=== PATIENT | female | born 1975 | race Caucasian/White ===

== ENCOUNTER 2021-08-27 09:06 | Outpatient (REF) | payer BC, SELFPAY ==
[2021-08-27 11:24] LABS: MANUAL DIFF FLAG NO
[2021-08-27 11:32] LABS: Basophils Absolute Auto 0.1 X10*3/uL (0.0-0.2); Basophils Percent Auto 0.6 % (0-2); Eosinophils Absolute Auto 0.3 X10*3/uL (0.0-0.4); Hematocrit 42.5 % (37.0-47.0); Imm Gran Abs Auto 0.04 X10*3/uL (0.00-0.03); Imm Gran Pct Auto 0.5 % (0.0-0.4); Lymphocytes Absolute Auto 1.8 X10*3/uL (1.2-4.9); Lymphocytes Percent Auto 20.4 % (20-40); Mean Corpuscular HGB Conc 32.9 g/dl (31.0-35.0); Mean Corpuscular Hemoglobin 28.6 pg (27.0-33.0); Mean Corpuscular Volume 86.9 fL (80.0-98.0); Mean Platelet Volume 12.1 fL (9.4-12.3); Monocytes Absolute Auto 0.5 X10*3/uL (0.1-1.2); Monocytes Percent Auto 5.3 % (2-11); Neutrophils Absolute Auto 6.1 x10*3/uL (2.0-8.3); Neutrophils Percent Auto 70.2 % (45-73); Platelet Count 225 X10*3/uL (160-400); Red Blood Count 4.89 X10*6/uL (4.20-5.50); Red Cell Distribution Width 12.9 % (11.0-16.0); White Blood Count 8.6 X10*3/uL (4.8-10.8)
[2021-08-27 11:47] LABS: Alanine Aminotransferase 11 U/L (0-31); Albumin Level 4.1 g/dL (3.5-5.0); Alkaline Phosphatase 55 U/L (39-117); Anion Gap 13 (12-20); Aspartate Amino Transferase 16 U/L (5-31); Bilirubin Total 0.8 mg/dL (0.0-1.0); Blood Urea Nitrogen 14 mg/dL (9-16); Calcium 8.9 mg/dL (8.4-10.2); Carbon Dioxide 21 mmol/L (22-29); Chloride 110 mmol/L (96-108); Cholesterol 184 mg/dL; Estimated Glomerular Filt Rate > 60; Glucose Fasting 100 mg/dL (60-99); HDL Cholesterol 49 mg/dL; LDL Cholesterol Calculated 123 mg/dl; Potassium 4.5 mmol/L (3.3-5.1); Sodium 139 mmol/L (135-145); Total Protein 6.6 g/dL (6.5-8.0); Triglycerides 64 mg/dL
[2021-08-27 12:13] LABS: TSH reflex Free T4 1.53 uIU/mL (0.32-4.0); Vitamin D 25-OH Total 47.5 ng/mL (>30)
== END 2021-08-27 09:07 | disposition home or self-care (01) ==
LOC: HO.HMGCLDS 09:06
PROVIDERS: PCP Internal Medicine; Visit Provider Internal Medicine
DX: Z00.00 Encounter for general adult medical examination without abnormal findings (principal); Z86.32 Personal history of gestational diabetes; Z87.59 Personal history of other complications of pregnancy, childbirth and the puerperium; Z83.49 Family history of other endocrine, nutritional and metabolic diseases
CPT/HCPCS: 36415; 80053; 80061; 82306; 84443; 85025

== ENCOUNTER 2021-11-01 09:06 | Outpatient (REF) | payer BC, SELFPAY ==
[2021-11-01 09:30] LABS: Binax Internal Control QC Valid; Binax Now Covid-19 Ag Positive (Negative)
== END 2021-11-01 09:07 | disposition home or self-care (01) ==
LOC: HO.HMGCLDS 09:06
PROVIDERS: Visit Provider Internal Medicine
DX: Z13.89 Encounter for screening for other disorder (principal)

== ENCOUNTER 2022-08-25 08:42 | Outpatient (REF) | payer BC, SELFPAY ==
[2022-08-25 11:32] LABS: MANUAL DIFF FLAG NO
[2022-08-25 11:44] LABS: Basophils Absolute Auto 0.1 X10*3/uL (0.0-0.2); Basophils Percent Auto 1.2 % (0-2); Eosinophils Absolute Auto 0.3 X10*3/uL (0.0-0.4); Eosinophils Percent Auto 4.3 % (0-4); Hematocrit 42.5 % (37.0-47.0); Hemoglobin 14.3 g/dl (12.0-16.0); Imm Gran Abs Auto 0.03 X10*3/uL (0.00-0.03); Imm Gran Pct Auto 0.5 % (0.0-0.4); Lymphocytes Absolute Auto 1.8 X10*3/uL (1.2-4.9); Lymphocytes Percent Auto 30.5 % (20-40); Mean Corpuscular HGB Conc 33.6 g/dl (31.0-35.0); Mean Corpuscular Hemoglobin 29.2 pg (27.0-33.0); Mean Corpuscular Volume 86.7 fL (80.0-98.0); Mean Platelet Volume 12.2 fL (9.4-12.3); Monocytes Absolute Auto 0.4 X10*3/uL (0.1-1.2); Neutrophils Absolute Auto 3.5 x10*3/uL (2.0-8.3); Neutrophils Percent Auto 57.5 % (45-73); Platelet Count 205 X10*3/uL (160-400)
[2022-08-25 12:21] LABS: TSH reflex Free T4 1.71 uIU/mL (0.32-4.0)
[2022-08-25 12:44] LABS: Alanine Aminotransferase 11 U/L (0-31); Anion Gap 16 (12-20); Aspartate Amino Transferase 18 U/L (5-31); Blood Urea Nitrogen 20 mg/dL (9-16); Calcium 9.2 mg/dL (8.4-10.2); Carbon Dioxide 21 mmol/L (22-29); Chloride 108 mmol/L (96-108); Cholesterol 188 mg/dL; Estimated Glomerular Filt Rate > 60; Glucose Fasting 111 mg/dL (60-99); HDL Cholesterol 61 mg/dL; LDL Cholesterol Calculated 118 mg/dl; Potassium 4.6 mmol/L (3.3-5.1); Sodium 140 mmol/L (135-145); Triglycerides 49 mg/dL
[2022-08-25 13:33] LABS: Vitamin D 25-OH Total 49.5 ng/mL (>30)
== END 2022-08-25 08:43 | disposition home or self-care (01) ==
LOC: HO.HMGCLDS 08:42
PROVIDERS: PCP Internal Medicine; Visit Provider Internal Medicine
DX: L60.8 Other nail disorders (principal); E66.9 Obesity, unspecified; Z83.49 Family history of other endocrine, nutritional and metabolic diseases; Z86.32 Personal history of gestational diabetes
CPT/HCPCS: 36415; 80048; 80061; 82306; 84443; 84450; 84460; 85025

== ENCOUNTER 2023-04-30 08:04 | Outpatient (AMB) | payer BC, SELFPAY ==
--- NOTE | 2023-04-30 08:16 | A.OFFVIS_ITS ---
Intake Vital Signs 04/30/23 08:17 Height 5 ft 3 in Weight 185 lb BMI 32.8 BP 132/61 Blood Pressure Location Lt brachial Position Sitting Pulse 57 Intake Visit Reasons: colonoscopy screening Intake Note: Patient 1st pre colonoscopy consult. Patient denies any GI issues. 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 She has no GI or general complaints. No family history of GI cancer Appetite is good, she has normal bowel pattern. No cardiac or respiratory issues No nausea, vomiting, hematemesis, hematochezia fever chills. [facility] Medical History (Updated 04/30/23 @ 10:10 by Fatoumata Contreras PA-C) Acquired deformity of toenail COVID-19 vaccination declined Family history of thyroid disease History of menorrhagia History of pre-eclampsia Hx gestational diabetes Obesity without serious comorbidity Status post hysteroscopy Surgical History Status post dilatation and curettage Status post endometrial ablation Family History Other Thyroid disorder Social History Housing: House Patient Tobacco Use Status: Never used Tobacco e-Cigarette/Vaping Use: Never Used service: No Current occupational status: employed Cognitive needs: No Hearing needs: No Vision needs: Yes (contacts) Review of Systems Const All systems reviewed & are unremarkable except as noted in HPI and below Card Denies chest pain and Denies dyspnea Resp Denies dyspnea GI Denies no additional complaints and Denies abdominal pain Physical Exam Vital Signs: Last Vital Signs Pulse 57 04/30/23 08:17 BP 132/61 04/30/23 08:17 BMI result Body Mass Index 32.8 Const General: cooperative, healthy appearing and comfortable Orientation/consciousness: patient oriented x3 Limitations: no limitations Eyes Sclerae: sclerae normal Resp Effort & Inspection: normal respiratory effort and able to speak in complete sentences Auscultation: clear to auscultation bilaterally and no wheezes Cardio Rate: regular rate Rhythm: regular rhythm Heart sounds: S1 normal heart sound present and S2 normal heart sound present GI Palpation (GI): Soft to palpation and nontender Auscultation: normal bowel sounds Neuro General: patient oriented x3 Extrem General: Yes full ROM Psych Appearance: grossly normal and well kempt Mental Status: mental status grossly normal Speech and movement: Normal speech and movement present and Clear speech present Affect: normal affect Attitude: cooperative Thought process: Normal thought process present Thought content: Normal thought content present Insight: Good insight present (Psych) Judgement: Good judgement present (Psych) Assessment & Plan Assessment & Plan (1) Encounter for screening colonoscopy: Comment: No GI or general complaints Code(s): Z12.11 - Encounter for screening for malignant neoplasm of colon Orders: Orders Colonoscopy - GI Use Only Today Z12.11 - Encounter for screening for malignant neoplasm of colon Medications: New bisacodyl (Dulcolax (bisacodyl)) Take 4 tablets by mouth at 12:00pm the day before your procedure. 20 mg (4 x 5 mg) PO ONCE 4 tabs 0RF colonoscopy prep 1 day Z12.11 - Encounter for screening for malignant neoplasm of colon polyethylene glycol 3350 (Miralax) Take as directed by mouth the day before your procedure. 238 grams PO ONCE PRN 238 grams 0RF laxative effect 1 day Patient Instructions: Pleasant, 48-year-old female referred index screening colonoscopy. Discussed procedure, risks, need for escorted due to anesthesia as well as MiraLax Gatorade split prep. Literature given No major barriers to understanding were identified Encouraged to call questions or concerns Appreciate the opportunity assist in the care this pleasant patient Coding Level of Care Code New Pt Level 3 (45945) Diagnoses Encounter for screening colonoscopy Z12.11 Time Spent (min) 30
[2023-04-30 08:17] VITALS: BP 132/61; PULSE 57; BMI 32.8
== END 2023-04-30 08:48 | disposition home or self-care (01) ==
PROVIDERS: Visit Provider Physician Assistant
DX: Z01.818 Encounter for other preprocedural examination (principal); Z12.11 Encounter for screening for malignant neoplasm of colon
CPT/HCPCS: S0285

== ENCOUNTER → 2023-04-30 08:04 | Outpatient (BNVA) | payer BC, SELFPAY | PROVIDERS: Visit Provider Physician Assistant ==

== ENCOUNTER 2023-12-04 06:33 | Day surgery (SDC) | payer BC, SELFPAY ==
[2023-11-28 14:43] VITALS: BMI 32.8
[2023-12-04 06:39] VITALS: BP 168/83; PULSE 62; RESP 20; TEMP 36.6; O2SAT 98; BMI 35.7
[2023-12-04 06:54] VITALS: BP 149/83
[2023-12-04] MEDS: Lactated Ringers 1,000 ML 50 ML IVCONT (07:05)
--- NOTE | 2023-12-04 07:41 | P.HPSUR_ITS ---
Pre-Procedural Eval Section A - 24 Hr Update-Section A only Date of Service: 12/04/23 Section B - Complete if H&P > 30 days Chief Complaint: Encounter for screening for malignant neoplasm of Relevant Family History (Specify if Yes): No Relevant Social History: None Present Medications: see Short Stay Collaborative assessment Medical History: Significant History (Acquired deformity of toenail COVID-19 v accination declined Family history of thyroid disease History of menorrhagia History of pre-eclampsia Hx gestational diabetes Obesity without serious comorbidity Status post hysteroscopy) History of Previous Operations: Relevant previous surgery/procedure and date(s) (Status post dilatation and curettage Status post endometrial ablation) Allergies: Allergies Allergy/AdvReac Type Severity Reaction Status Date / Time No Known Allergies Allergy Verified 04/30/23 08:14 Review of Systems Sugical H&P ROS: Negative: Constitution, Cardiovascular, Respiratory, Neurological, Psychiatric, Hem-Onc, Allergic/Immunologic, Gastrointestinal, Genitourinary, Musculoskeletal, Integumentary, Endocrine and Eyes/Ears/Nose/Throat Exam Surgical H&P Exam: Normal: HEENT, Normal: Heart, Normal: Lungs, Normal: Extremities, Normal: Abdomen, Normal: Skin and Normal: Neurological Plan Diagnosis/Plan: Unchanged I have reviewed the history and physical and performed a pertinent physical examination on my patient. No changes have occurred unless specified. Time Spent With Patient Time: Total time managing care of this patient today ____ minutes.
--- NOTE | 2023-12-04 07:47 | W.PM.OPN ---
Operative Note Operative Note Date of Service: 12/04/23 Narrative: Operative Information Procedure Description: Colonoscopy Indication: screening Anesthesia: MAC COLONOSCOPY Instrument: Olympus variable stiffness pediatric scope 190L Colonoscopy Monitoring: Vital signs and clinical assessment, continuous EKG monitoring, Pulse oximetry, Carbon Dioxide monitoring and blood pressure monitoring were done throughout the procedure. Colon withdrawal time was 8 minutes. Procedure: The patient was placed in the left lateral decubitis position and pre-procedure medications were administered. After a digital rectal examination of the ano-rectum, the video colonoscope was inserted into the rectum and advanced through the colon to the cecum/TI. The colonoscope was slowly withdrawn in a retrograde panoramic fashion and the colon mucosa was carefully examined including a retroflexed view of the rectum. Findings and interventions are described below. Procedure Difficulty: easy Findings: Terminal Ileum-normal Cecum:normal Right sided retroflexion- normal Ascending Colon: normal Transverse Colon -normal Descending Colon:normal Sigmoid Colon: scattered moderate diverticulosis, varied sizes of tics Rectum: Retroflexion with small internal hemorrhoids, grade I Anorectum - normal Colon preparation: [place] Bowel Preparation Scale Right colon; 3 Transverse colon: 2 Left colon; 3 (0 = Unprepared colon segment with mucosa not seen due to solid stool that cannot be cleared. 1 = Portion of mucosa of the colon segment seen, but other areas of the colon segment not well seen due to staining, residual stool and/or opaque liquid. 2 = Minor amount of residual staining, small fragments of stool and/or opaque liquid, but mucosa of colon segment seen well. 3 = Entire mucosa of colon segment seen well with no residual staining, small fragments of stool or opaque liquid) Impression and Post Procedure Diagnosis: internal hemorrhoids diverticular disease Plan: High fiber diet leaflet Avoid straining at stool, epsom salts and sitz bath, anusol supps or cream Repeat Colonoscopy in 10 years or earlier if clinically indicated Above findings were reviewed with the patient and relevant handouts were provided if indicated.
[2023-12-04 08:07] VITALS: BP 129/78; PULSE 58; RESP 20; TEMP 36.4; O2SAT 99
--- NOTE | 2023-12-04 08:09 | HO.ANESPROP2 ---
HPI - Anesthesia Eval Consult details Narrative: 48-year-old female presenting for routine colonoscopy screening [facility] Active Problems Active Problems: All Active Problems (Updated 11/28/23 @ 14:40 by Kierra Wright RN) Encounter for screening colonoscopy (Acute) Upper respiratory tract infection (Acute) COVID-19 vaccination declined (Acute) Upper respiratory tract infection (Acute) Acquired deformity of toenail (Acute) Obesity without serious comorbidity (Acute) History of pre-eclampsia (Acute) Hx gestational diabetes (Acute) Family history of thyroid disease (Acute) Past Medical History Medical History History of menorrhagia Acquired deformity of toenail Obesity without serious comorbidity History of pre-eclampsia Hx gestational diabetes Family history of thyroid disease Family History Family History Other Thyroid disorder Family history of problems with anesthesia: No Surgical History Surgical History Hx of dilation and curettage History of Problems with Anesthesia: No Social History Social History Housing: House Patient Tobacco Use Status: Never used Tobacco e-Cigarette/Vaping Use: Never Used Are you DNR?: No Advance Directives: No Advance Directives Information Provided: Yes Recently lost weight without trying: No Nutrition Risks: No Nutritional Risk Patient : No FDLMP: last period 1 year service: No Current occupational status: employed Cognitive needs: No Hearing needs: No Vision needs: Yes (contacts) Meds Allergies Allergy/AdvReac Type Severity Reaction Status Date / Time No Known Allergies Allergy Verified 04/30/23 08:14 Active Medications: Current Medications Lactated Ringer's (Lr) 1,000 mls @ 50 mls/hr IVCONT .Q20H MACKENZIE Last Admin: 12/04/23 07:05 Dose: 50 mls/hr Home Medications Medication Instructions Recorded Confirmed Last Taken Type cider vinegr-apple 1 tab PO DAILY 08/17/21 11/28/23 12/01/23 History [id number]-[id number]-min#32 300 mg-50 mg-200 mg tablet multivitamin 1 tab PO DAILY 08/17/21 11/28/23 12/01/23 History omega-3 fatty acids 1,000 mg 1,000 mg PO DAILY 08/17/21 11/28/23 12/01/23 History capsule (Fish Oil Concentrate) turmeric 100 mg-gilbert 150 1 cap PO DAILY 08/17/21 11/28/23 12/01/23 History mg-olive 50 mg-oreg 150 mg-capryl capsule Exam Height,Weight and Vital Signs: Height 5 ft 3 in Weight 201 lb 12.8 oz Last Vital Signs Temp 98 F 12/04/23 06:39 Pulse 62 12/04/23 06:39 Resp 20 12/04/23 06:39 BP 149/83 H 12/04/23 06:54 Pulse Ox 98 12/04/23 06:39 O2 Del Method Room Air 12/04/23 06:39 Airway Mallampati Class: III TM Dist: >3cm Neck ROM: Full Loose/Missing/Broken Teeth: No Assessment and Plan Assessment Anesthesia Assessment: Anesthesia Plan Discussed and Chart Reviewed Final Anesthetic Review Family History of Problems with Anesthesia: No History of Problems with Anesthesia: No NPO: Yes ASA Class: II Final Preanesthetic Review: No Changes in Pt Med Stat, Meds/Allgs Chart Reviewed, Consent Obtained/Reviewed and Anes Risks/Benef Reviewed Patient Risk: Low Procedure Risk: Low Anesthetic Plan Anesthetic Plan: MAC: Disposition: Standard PACU
[2023-12-04 08:22] VITALS: BP 149/93; PULSE 55; RESP 16; O2SAT 98
== END 2023-12-04 08:56 | disposition home or self-care (01) ==
PROVIDERS: PCP Internal Medicine; Visit Provider Internal Medicine Gastroenterology
PROC: 0DJD8ZZ Inspection of Lower Intestinal Tract, Via Natural or Artificial Opening Endoscopic (ICD-10-PCS; CPT 45378; principal; 2023-12-04 07:30)
DX: Z12.11 Encounter for screening for malignant neoplasm of colon (principal); K57.30 Diverticulosis of large intestine without perforation or abscess without bleeding; K64.0 First degree hemorrhoids; E66.9 Obesity, unspecified; Z68.32 Body mass index [BMI] 32.0-32.9, adult; Z90.710 Acquired absence of both cervix and uterus
CPT/HCPCS: 45378; J2704

== ENCOUNTER → 2023-12-04 06:33 | Outpatient (BNV) | payer BC, SELFPAY | PROVIDERS: PCP Internal Medicine; Visit Provider Internal Medicine Gastroenterology | DX: Z12.11 Encounter for screening for malignant neoplasm of colon (principal); K57.90 Diverticulosis of intestine, part unspecified, without perforation or abscess without bleeding; K64.8 Other hemorrhoids | CPT/HCPCS: 45378 ==

== ENCOUNTER 2023-12-18 14:52 | Outpatient (AMB) | payer BC, SELFPAY ==
--- NOTE | 2023-12-18 14:55 | MHC.OFFVIS ---
Intake Vital Signs 12/18/23 14:56 Height 5 ft 4 in Weight 180 lb BMI 30.9 BP 129/62 Blood Pressure Location Lt brachial Position Sitting Pulse 67 Intake Visit Reasons: s/P [place]; Intake Note: Patient follow up for Colonoscopy results. Patient denies any GI issues. 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 Accompanied by: Self / Same As Patient Allergies No Known Allergies Allergy (Verified 12/18/23 14:55) HPI HPI Comments History of Present Illness Details Very pleasant 48-year-old female follows up after recent index screening colonoscopy She tolerated procedure well Reviewed procedure report as well as recommendations Opportunity for questions No nausea, vomiting, abdominal pain, hematemesis hematochezia fever chills PFSH Medical History History of menorrhagia Acquired deformity of toenail Obesity without serious comorbidity History of pre-eclampsia Hx gestational diabetes Family history of thyroid disease Surgical History Hx of dilation and curettage Family History Other Thyroid disorder Social History Housing: House Patient Tobacco Use Status: Never used Tobacco e-Cigarette/Vaping Use: Never Used service: No Current occupational status: employed Cognitive needs: No Hearing needs: No Vision needs: Yes (contacts) Review of Systems Const Details: All systems reviewed and are negative All systems reviewed & are unremarkable except as noted in HPI and below Physical Exam Vital Signs: Last Vital Signs Pulse 67 12/18/23 14:56 BP 129/62 12/18/23 14:56 BMI result Body Mass Index 30.9 Alert oriented very pleasant female Resp Effort & Inspection: normal respiratory effort and able to speak in complete sentences Extrem General: Yes full ROM Psych Appearance: grossly normal and well kempt Mental Status: mental status grossly normal Speech and movement: Normal speech and movement present and Clear speech present Affect: normal affect Attitude: cooperative Thought process: Normal thought process present Thought content: Normal thought content present Results Reviewed Results Reviewed: nternal hemorrhoids diverticular disease Plan: High fiber diet leaflet Avoid straining at stool, epsom salts and sitz bath, anusol supps or cream Repeat Colonoscopy in 10 years or earlier if clinically indicated Assessment & Plan Assessment & Plan (1) Diverticulosis: Code(s): K57.90 - Diverticulosis of intestine, part unspecified, without perforation or abscess without bleeding Plan: Diverticulosis/diverticulitis ER protocol Plan Repeat asymptomatic colonoscopy 10 Maintain high-fiber diet ER protocol Patient Instructions: Very pleasant 48-year-old female follows up after recent index screening colonoscopy No GI complaints Repeat asymptomatic colonoscopy 10 years Maintain high-fiber diet avoid straining with hemorrhoid Reviewed diverticulosis/diverticulitis ER protocol Reviewed foods to avoid-nuts, corn , seeds ETC Encouraged to call with any questions or concerns Appreciate the opportunity assist in care of patient Coding Level of Care Code Est Pt Level 3 (92214) Diagnoses Diverticulosis K57.90 Time Spent (min) 25
[2023-12-18 14:56] VITALS: BP 129/62; PULSE 67; BMI 30.9
== END 2023-12-18 16:08 | disposition home or self-care (01) ==
PROVIDERS: PCP Internal Medicine; Visit Provider Physician Assistant
DX: K57.90 Diverticulosis of intestine, part unspecified, without perforation or abscess without bleeding (principal)
CPT/HCPCS: 99213

== ENCOUNTER → 2023-12-18 14:52 | Outpatient (BNVA) | payer BC, SELFPAY | PROVIDERS: PCP Internal Medicine; Visit Provider Physician Assistant ==

== ENCOUNTER 2023-12-26 08:20 | Outpatient (AMB) | payer BC, SELFPAY ==
--- NOTE | 2023-12-26 08:34 | A.OFFPC_ITS ---
Vital Signs 12/26/23 08:35 Height 5 ft 4 in Weight 203 lb BMI 34.8 BP 124/82 Blood Pressure Location Rt brachial Position Sitting Pulse 66 Pulse Source Pulse Oximeter Pulse Oximetry (%) 96 Oxygen Delivery Method Room Air Intake Visit Reasons: annual PE Intake Note: Pt is here today for her PE: Last mammogram 09/20/23, colonoscopy 12/04/23 Allergies No Known Allergies Allergy (Verified 12/26/23 09:31) Medication List - Last Reconciled 12/26/23 by Caroline Gonzalez MD cholecalciferol (vitamin D3) 50 mcg PO DAILY lionel.[id number] 300-50-200 mg 1 tab PO DAILY glucosamine-chondroitin 250-200 mg (Osteo Bi-Flex) 2 tabs PO TID multivitamin 1 tab PO DAILY omega-3 fatty acids (Fish Oil Concentrate) 1,000 mg PO DAILY uqegmimm-aepu-vuckg-oreg-capry 100 mg-150 mg- 50 mg-150 mg 1 cap PO DAILY Tobacco use date assessed: 12/26/23 Dental Screening Dental Screen Date: 12/26/23 Did you have a dental visit in the last 12 months?: Yes Did you have a dental problem in the last 6 months where you did not have access to dental care?: No Was dental information given to patient?: Patient has dentist HPI annual PE HPI Details 48-year-old lady here today for physical exam. Up-to-date with her screening mammogram done September 2023 with benign findings, up-to-date with her cervical cancer screening, done by Dr. Ring at [facility], with benign findings. She just had a screening colonoscopy done a month ago by Dr. Graves which showed presence of diverticulosis and internal hemorrhoids, repeat due in 10 years. She has had a Tdap but does not want to get a COVID vaccine, up-to-date with her flu shot. She has been following a healthy diet, goes to the gym to exercise regularly, but complains of still gaining weight. [facility] Medical History (Updated 12/26/23 @ 09:30 by Caroline Gonzalez MD) Impaired fasting glucose History of menorrhagia Acquired deformity of toenail Obesity without serious comorbidity History of pre-eclampsia Hx gestational diabetes Family history of thyroid disease Surgical History Hx of dilation and curettage Family History Other Thyroid disorder Social History Housing: House Patient Tobacco Use Status: Never used Tobacco e-Cigarette/Vaping Use: Never Used service: No Current occupational status: employed Cognitive needs: No Hearing needs: No Vision needs: Yes (contacts) Questionnaire PHQ-9 Over the last 2 weeks, how often have you been bothered by any of the following problems? 1. Little interest or pleasure in doing things: not at all 2. Feeling down, depressed, or hopeless: not at all 3. Trouble falling or staying asleep, or sleeping too much: not at all 4. Feeling tired or having little energy: not at all 5. Poor appetite or overeating: not at all 6. Feeling bad about yourself - or that you are a failure or have let yourself or your family down: not at all 7. Trouble concentrating on things, such as reading the newspaper or watching television: not at all 8. Moving or speaking so slowly that other people could have noticed. Or the opposite - being so fidgety or restless that you have been moving around a lot more than usual: not at all 9. Thoughts that you would be better off or of hurting yourself in some way: not at all Total score: 0 Depression Screening Interpretation: Negative Depression Screening Done: Yes 12510 - PHQ-9 Billing: Yes Source: Developed by Drs. Vineet Montejo, Selena Amador, Edgar Martinez and colleagues, with an educational gualberto from [employer]. Thrive Questionnaire Date Thrive assessed: 12/26/23 I am a: Patient What is your living situation today?: I have a steady place to live Within the past 12 months, did the food you bought not last and you didn't have the money to get more?: Never true Within the past 12 months, did you worry whether your food would run out before you got money to buy more?: Never true Do you have trouble paying for medicines?: No Do you have trouble getting transportation to medical appointments?: No Do you have trouble paying your heating and electricity bill?: No Do you have trouble taking care of your child, family member or friend?: No Do you have trouble with day-to-day activities such as bathing, preparing meals, shopping, managing finances, etc.?: No Are you currently unemployed and looking for a job?: No Are you interested in more education?: No THRIVE Score: 0 AUDIT C Alcohol Use Questionnaire (AUDIT-C) 1. How often do you have a drink containing alcohol?: Monthly or less 2. How many drinks containing alcohol do you have on a typical day when you are drinking?: 1 or 2 3. How often do you have six or more drinks on one occasion?: Never Total Score: 1 ANAY-7 AMB Questionnaire ANAY-7 Date ANAY - 7 assessed: 12/26/23 Source: Developed by Drs. Vineet Montejo, Selena Amador, Edgar Martinez and colleagues, with an educational gualberto from [employer]. ANAY-7 Assessment Billing ANAY-7 Assessment Tool: pt declined-do not bill Review of Systems Const Denies body aches, Denies fatigue, Denies fever(s), Denies headache(s), Denies weakness and Reports weight gain Eyes Denies change in vision, Denies eye discharge and Denies itchy eyes ENT Reports Normal hearing present, Denies dizziness, Denies headache(s), Denies nasal congestion, Denies nasal discharge and Denies sore throat Card Denies chest pain, Denies lightheadedness, Denies palpitations and Denies dyspnea Resp Denies chest congestion, Denies cough, Denies dyspnea and Denies wheezing GI Denies abdominal pain, Denies change in bowel habits and Denies heartburn Denies urinary frequency, Denies dysuria and Denies urinary urgency Musc Reports no additional complaints Skin/Breast Denies lesions, Denies rash and Reports other (Tattoo on lower back) Neuro Reports Normal hearing present, Denies dizziness, Denies headache(s), Denies Sensory deficit (Neuro) and Denies weakness Psych Reports no additional complaints Endo Denies fatigue, Denies polydipsia, Denies polyuria and Denies palpitations Nelson/Lymph Denies easy bruising Aller/Immun Denies itchy eyes, Denies seasonal rhinorrhea and Denies wheezing Physical exam (Primary Care) Vital Signs: Last Vital Signs Pulse 66 12/26/23 08:35 BP 124/82 12/26/23 08:35 Pulse Ox 96 12/26/23 08:35 Oxygen Delivery Method Room Air 12/26/23 08:35 BMI result Body Mass Index 34.8 BMI Assessment/Plan discussion: High BMI High, discussed plan: lifestyle, weight reduction, dietary and physical activity Tobacco/Smoking Status: Tobacco use Status Tobacco use date assessed 12/26/23 12/26/23 08:36 Patient Tobacco Use Status Never used Tobacco 12/26/23 08:36 e-Cigarette/Vaping Use Never Used 12/26/23 08:36 PHQ-9: PHQ-9 Score PHQ-9: Total score 0 12/26/23 09:06 Depression Screening Interpretation: Negative Thrive Assessment: Date of Thrive Assessment Date Thrive assessed 12/26/23 12/26/23 09:06 Const General: cooperative, no acute distress and alert Orientation/consciousness: patient oriented x3 Limitations: no limitations HENMT Head: Yes normal to inspection and Yes normocephalic Ears: external ears normal, TM's normal bilaterally and EAC's normal General nose exam: Normal external nose present Face and sinus: Yes normal facial exam and Yes face symmetric Mouth: oropharynx normal and moist mucous membranes Eyes Conjunctivae: conjunctivae normal Sclerae: sclerae normal Pupils: Equal, round and reactive pupils present EOM: EOMs intact bilaterally Neck Neck: Yes full ROM and Yes no lymphadenopathy Thyroid: Thyroid normal Chest Chest palpation & inspection: normal inspection of the chest Breast/axilla palpation: normal palpation of the breasts Resp Effort & Inspection: normal respiratory effort and able to speak in complete sentences Auscultation: clear to auscultation bilaterally Cardio Jugular venous distension: no JVD Rate: regular rate Rhythm: regular rhythm Heart sounds: S1 normal heart sound present and S2 normal heart sound present GI Inspection: Yes normal to inspection Palpation (GI): Soft to palpation Auscultation: normal bowel sounds Other: Currently followed [facility] by Dr. Ring who recently did the hysteroscopy, D&C and endometrial ablation to patient for treatment of menorrhagia 07/18/2022 Back/Spine/Pelvis Cervical Spine: normal cervical lordosis Thoracic/Lumbar Spine: thoracic and lumbar spine normal to inspection Skin General skin exam: no rashes or lesions noted Neuro General: patient oriented x3, gait normal, moves all extremities, no focal motor deficits and CN's II-XI intact bilaterally Cranial nerves: Yes Equal, round and reactive pupils present and Yes Normal hearing present Cognition (Neuro): normal cognition Gait exam (Neuro): Normal gait present Motor exam (neuro): 5/5 motor strength present throughout Sensory Exam: No Sensory deficit (Neuro) Extrem General: Yes normal to inspection, Yes full ROM, Yes no pedal edema and Yes normal gait Psych Appearance: grossly normal and well kempt Mental Status: mental status grossly normal Speech and movement: Normal speech and movement present Affect: normal affect Attitude: cooperative Assessment and Plan Assessment & Plan (1) Obesity without serious comorbidity: Code(s): E66.9 - Obesity, unspecified Plan: Recommended focusing on improving your health instead of dieting. : Eat Mediterranean diet, limit foods high in fat, sugar, and calories, eat slowly, pay attention to portion sizes, plan your meals ahead of time, start regular physical activity 150 minutes of moderate intensity exercise or 90 minutes/week of vigorous exercise (2) COVID-19 vaccination declined: Code(s): Z28.21 - Immunization not carried out because of patient refusal (3) Annual visit for general adult medical examination with abnormal findings: Code(s): Z00.01 - Encounter for general adult medical examination with abnormal findings Plan: Will check appropriate labs. Recommended dental visit every 6 months and regular eye exams, at least every 2 years. Take adequate calcium in diet and vitamin-D 3 at 2000 IU per cap once a day, in addition to weight-bearing exercises to help maintain good muscle tone and weight control. Instructed to do self-breast exam, and recommended to get yearly mammogram, starting at age 40. Immunization information provided: Yearly flu vaccine, shingles vaccine starting at age 50, at age 65 to start getting Prevnar 13 followed 1 year later by Pneumovax 23. Colonoscopy Orders: Orders Alanine Aminotransferase Today E66.9 - Obesity, unspecified, R73.01 - Impaired fasting glucose, Z00.01 - Encounter for general adult medical examination with abnormal findings, Z13.220 - Encounter for screening for lipoid disorders, Z28.21 - Immunization not carried out because of patient refusal, Z86.32 - Personal history of gestational diabetes, Z87.59 - Personal history of other complications of , childbirth and the puerperium Hemoglobin A1c Today E66.9 - Obesity, unspecified, R73.01 - Impaired fasting glucose, Z00.01 - Encounter for general adult medical examination with abnormal findings, Z13.220 - Encounter for screening for lipoid disorders, Z28.21 - Immunization not carried out because of patient refusal, Z86.32 - Personal history of gestational diabetes, Z87.59 - Personal history of other complications of , childbirth and the puerperium Aspartate Amino Transferase Today E66.9 - Obesity, unspecified, R73.01 - Impaired fasting glucose, Z00.01 - Encounter for general adult medical examination with abnormal findings, Z13.220 - Encounter for screening for lipoid disorders, Z28.21 - Immunization not carried out because of patient refusal, Z86.32 - Personal history of gestational diabetes, Z87.59 - Personal history of other complications of , childbirth and the puerperium Basic Metabolic Panel Fasting Today E66.9 - Obesity, unspecified, R73.01 - Impaired fasting glucose, Z00.01 - Encounter for general adult medical examinati on with abnormal findings, Z13.220 - Encounter for screening for lipoid disorders, Z28.21 - Immunization not carried out because of patient refusal, Z86.32 - Personal history of gestational diabetes, Z87.59 - Personal history of other complications of , childbirth and the puerperium Lipid Panel Today E66.9 - Obesity, unspecified, R73.01 - Impaired fasting glucos e, Z00.01 - Encounter for general adult medical examination with abnormal findings, Z13.220 - Encounter for screening for lipoid disorders, Z28.21 - Immunization not carried out because of patient refusal, Z86.32 - Personal history of gestational diabetes, Z87.59 - Personal history of other complications of , childbirth and the puerperium Coding Level of Care Code Est Pt Prev Care 40-64y(97367) Diagnoses Obesity without serious comorbidity E66.9 COVID-19 vaccination declined Z28.21 Annual visit for general adult medical examination with abnormal findings Z00.01
[2023-12-26 08:35] VITALS: BP 124/82; PULSE 66; O2SAT 96; BMI 34.8
== END 2023-12-26 11:49 | disposition home or self-care (01) ==
PROVIDERS: PCP Internal Medicine; Visit Provider Internal Medicine
DX: Z00.00 Encounter for general adult medical examination without abnormal findings (principal); E66.9 Obesity, unspecified; Z68.34 Body mass index [BMI] 34.0-34.9, adult; Z28.21 Immunization not carried out because of patient refusal
CPT/HCPCS: 99396

== ENCOUNTER 2024-01-11 08:38 | Outpatient (REF) | payer BC, SELFPAY ==
[2024-01-11 11:07] LABS: Alanine Aminotransferase 12 U/L (0-31); Anion Gap 11 (12-20); Aspartate Amino Transferase 20 U/L (5-31); Blood Urea Nitrogen 18 mg/dL (9-16); Calcium 9.4 mg/dL (8.4-10.2); Carbon Dioxide 21 mmol/L (22-29); Chloride 109 mmol/L (96-108); Cholesterol 194 mg/dL (<200); Estimated Glomerular Filt Rate > 60; Glucose Fasting 107 mg/dL (60-99); HDL Cholesterol 59 mg/dL (>40); LDL Cholesterol Calculated 122 mg/dL (<100); Potassium 4.2 mmol/L (3.3-5.1); Sodium 137 mmol/L (135-145); Triglycerides 69 mg/dL (<150)
[2024-01-11 11:17] LABS: Estimated Average Glucose 108 mg/dL; Hemoglobin A1c % 5.4 % (<6.0)
== END 2024-01-11 08:39 | disposition home or self-care (01) ==
LOC: HO.HMGCLDS 08:38
PROVIDERS: PCP Internal Medicine; Visit Provider Internal Medicine
DX: Z00.01 Encounter for general adult medical examination with abnormal findings (principal); Z13.220 Encounter for screening for lipoid disorders; E66.9 Obesity, unspecified; R73.01 Impaired fasting glucose; Z86.32 Personal history of gestational diabetes; Z87.59 Personal history of other complications of pregnancy, childbirth and the puerperium
CPT/HCPCS: 36415; 80048; 80061; 83036; 84450; 84460

== ENCOUNTER 2024-01-25 07:54 | Outpatient (AMB) | payer BC, SELFPAY ==
[2024-01-25 08:02] VITALS: BP 122/82; PULSE 62; O2SAT 96; BMI 33.6
--- NOTE | 2024-01-25 08:02 | A.OFFPC_ITS ---
Vital Signs 01/25/24 08:02 Height 5 ft 4 in Weight 196 lb BMI 33.6 BP 122/82 Blood Pressure Location Rt brachial Position Sitting Pulse 62 Pulse Source Pulse Oximeter Pulse Oximetry (%) 96 Oxygen Delivery Method Room Air Intake Visit Reasons: weight in start a new med Intake Note: Pt is here today for er weigh in after starting new med Allergies No Known Allergies Allergy (Verified 01/25/24 08:22) Medication List - Last Reconciled 01/25/24 by Caroline Gonzalez MD cholecalciferol (vitamin D3) 50 mcg PO DAILY glucosamine-chondroitin 250-200 mg (Osteo Bi-Flex) 2 tabs PO TID multivitamin 1 tab PO DAILY omega-3 fatty acids (Fish Oil Concentrate) 1,000 mg PO DAILY tirzepatide (Mounjaro) 2.5 mg (0.5 mL) subcut QWEEK 4 weeks Tobacco use date assessed: 01/25/24 Dental Screening Dental Screen Date: 01/25/24 Did you have a dental visit in the last 12 months?: Yes Did you have a dental problem in the last 6 months where you did not have access to dental care?: No Was dental information given to patient?: Patient has dentist HPI weight in start a new med HPI Details 48-year-old lady with obesity, here toda y for follow-up after being started on Mounjaro for weight loss. She has been able to tolerate the medication, has not had any adverse effects. She has lost about 7 lb in the last month since starting the medication and has been compliant with adhering to healthy eating habits and getting regular exercise. [facility] Medical History Obesity (BMI 30.0-34.9) Impaired fasting glucose History of menorrhagia Acquired deformity of toenail History of pre-eclampsia Hx gestational diabetes Family history of thyroid disease Surgical History Hx of dilation and curettage Family History Other Thyroid disorder Social History Housing: House Patient Tobacco Use Status: Never used Tobacco e-Cigarette/Vaping Use: Never Used service: No Current occupational status: employed Cognitive needs: No Hearing needs: No Vision needs: Yes (contacts) Questionnaire Thrive Questionnaire Date Thrive assessed: 12/26/23 ANAY-7 AMB Questionnaire ANAY-7 Date ANAY - 7 assessed: 12/26/23 Source: Developed by Drs. Vineet Montejo, Selena Amador, Edgar Martinez and colleagues, with an educational gualberto from [employer]. Review of Systems Const All systems reviewed & are unremarkable except as noted in HPI and below Physical exam (Primary Care) Vital Signs: Last Vital Signs Pulse 62 01/25/24 08:02 BP 122/82 01/25/24 08:02 Pulse Ox 96 01/25/24 08:02 Oxygen Delivery Method Room Air 01/25/24 08:02 BMI result Body Mass Index 33.6 Tobacco/Smoking Status: Tobacco use Status Tobacco use date assessed 01/25/24 01/25/24 08:05 Patient Tobacco Use Status Never used Tobacco 01/25/24 08:05 e-Cigarette/Vaping Use Never Used 01/25/24 08:05 Thrive Assessment: Date of Thrive Assessment Date Thrive assessed 12/26/23 01/25/24 08:05 Const General: healthy appearing, comfortable and no acute distress Nutritional Appearance: obese Resp Auscultation: clear to auscultation bilaterally Cardio Other: S1-S2 present regular rate and rhythm GI Other: Normal bowel sounds, soft, nontender, no mass palpated Assessment and Plan Assessment & Plan (1) Obesity (BMI 30.0-34.9): Code(s): E66.9 - Obesity, unspecified Plan: Continue with Mounjaro, no adverse effects reported. Has been able to lose weight since starting at a month ago. Will increase her dose of Mounjaro to 5 mg injected once a week, prescription sent for 1 month with 1 refill, continue with adherence to healthy eating habits and regular exercise, will see her back for follow-up in 2 months. Medications: Changed From tirzepatide (Mounjaro) 2.5 mg (0.5 mL) subcut QWEEK 4 weeks 2 mL 0RF E66.9 - Obesity, unspecified, R73.01 - Impaired fasting glucose To tirzepatide 5 mg (0.5 mL) subcut QWEEK 2 mL 1RF 4 weeks E66.9 - Obesity, unspecified, R73.01 - Impaired fasting glucose Coding Level of Care Code Est Pt Level 3 (71428) Diagnoses Obesity (BMI 30.0-34.9) E66.9
== END 2024-01-25 08:30 | disposition home or self-care (01) ==
PROVIDERS: PCP Internal Medicine; Visit Provider Internal Medicine
DX: E66.9 Obesity, unspecified (principal); Z68.33 Body mass index [BMI] 33.0-33.9, adult
CPT/HCPCS: 99213

== ENCOUNTER 2024-04-03 15:17 | Outpatient (AMB) | payer BC, SELFPAY ==
[2024-04-03 15:28] VITALS: BP 112/68; PULSE 58; O2SAT 98; BMI 32.8
--- NOTE | 2024-04-03 15:28 | MHC.PC.OV ---
Vital Signs 04/03/24 15:28 Height 5 ft 4 in Weight 191 lb BMI 32.8 BP 112/68 Blood Pressure Location Lt brachial Position Sitting Pulse 58 Pulse Source Pulse Oximeter Pulse Oximetry (%) 98 Oxygen Delivery Method Room Air Intake Visit Reasons: Mid March Allergies No Known Allergies Allergy (Verified 04/03/24 16:02) Medication List - Last Reconciled 04/03/24 by Caroline Gonzalez MD cholecalciferol (vitamin D3) 50 mcg PO DAILY glucosamine-chondroitin 250-200 mg (Osteo Bi-Flex) 2 tabs PO TID multivitamin 1 tab PO DAILY omega-3 fatty acids (Fish Oil Concentrate) 1,000 mg PO DAILY tirzepatide (Mounjaro) 5 mg (0.5 mL) subcut QWEEK 1 month Tobacco use date assessed: 04/03/24 Dental Screening Dental Screen Date: 04/03/24 Did you have a dental visit in the last 12 months?: Yes Did you have a dental problem in the last 6 months where you did not have access to dental care?: No Was dental information given to patient?: Patient has dentist HPI Mid March HPI Details 49-year-old lady with obesity, here today for follow-up regarding her weight loss. She has been taking Mounjaro, was on 5 mg injected once a week but has been having difficulty getting her prescription filled as that current dose was out of stock. Would like to see if she can just go back on the 2.5 mg dosing. Has been tolerating it well,, still losing weight even on a lower dose, now down 5 lb in the last 2 months. [facility] Medical History Obesity (BMI 30.0-34.9) Impaired fasting glucose History of menorrhagia Acquired deformity of toenail History of pre-eclampsia Hx gestational diabetes Family history of thyroid disease Surgical History Hx of dilation and curettage Family History Other Thyroid disorder Social History Housing: House Patient Tobacco Use Status: Never used Tobacco e-Cigarette/Vaping Use: Never Used service: No Current occupational status: employed Cognitive needs: No Hearing needs: No Vision needs: Yes (contacts) Questionnaire PHQ-9 Over the last 2 weeks, how often have you been bothered by any of the following problems? 1. Little interest or pleasure in doing things: not at all 2. Feeling down, depressed, or hopeless: not at all 3. Trouble falling or staying asleep, or sleeping too much: not at all 4. Feeling tired or having little energy: not at all 5. Poor appetite or overeating: not at all 6. Feeling bad about yourself - or that you are a failure or have let yourself or your family down: not at all 7. Trouble concentrating on things, such as reading the newspaper or watching television: not at all 8. Moving or speaking so slowly that other people could have noticed. Or the opposite - being so fidgety or restless that you have been moving around a lot more than usual: not at all 9. Thoughts that you would be better off or of hurting yourself in some way: not at all Total score: 0 Depression Screening Interpretation: Negative Depression Screening Done: Yes 72987 - PHQ-9 Billing: Yes Source: Developed by Drs. Vineet Montejo, Selena Amador, Edgar Martinez and colleagues, with an educational gualberto from [employer]. Thrive Questionnaire Date Thrive assessed: 04/03/24 I am a: Patient What is your living situation today?: I have a steady place to live Within the past 12 months, did the food you bought not last and you didn't have the money to get more?: Never true Within the past 12 months, did you worry whether your food would run out before you got money to buy more?: Never true Do you have trouble paying for medicines?: No Do you have trouble getting transportation to medical appointments?: No Do you have trouble paying your heating and electricity bill?: No Do you have trouble taking care of your child, family member or friend?: No Do you have trouble with day-to-day activities such as bathing, preparing meals, shopping, managing finances, etc.?: No Are you currently unemployed and looking for a job?: No Are you interested in more education?: No Please select the resources that you would like help with: None Currently or been in a relationship where the following occur: no concerns reported THRIVE Score: 0 AUDIT C Alcohol Use Questionnaire (AUDIT-C) 1. How often do you have a drink containing alcohol?: Monthly or less 2. How many drinks containing alcohol do you have on a typical day when you are drinking?: 1 or 2 3. How often do you have six or more drinks on one occasion?: Never Total Score: 1 Score Reviewed/Action Taken: Yes ANAY-7 AMB Questionnaire ANAY-7 Date ANAY - 7 assessed: 12/26/23 Source: Developed by Drs. Vineet Montejo, Selena Amador, Edgar Martinez and colleagues, with an educational gualberto from [employer]. Review of Systems Const All systems reviewed & are unremarkable except as noted in HPI and below Physical exam (Primary Care) Vital Signs: Last Vital Signs Pulse 58 04/03/24 15:28 BP 112/68 04/03/24 15:28 Pulse Ox 98 04/03/24 15:28 Oxygen Delivery Method Room Air 04/03/24 15:28 BMI result Body Mass Index 32.8 Tobacco/Smoking Status: Tobacco use Status Tobacco use date assessed 04/03/24 04/03/24 15:30 Patient Tobacco Use Status Never used Tobacco 04/03/24 15:30 e-Cigarette/Vaping Use Never Used 04/03/24 15:30 PHQ-9: PHQ-9 Score PHQ-9: Total score 0 04/03/24 16:11 Depression Screening Interpretation: Negative Thrive Assessment: Date of Thrive Assessment Date Thrive assessed 04/03/24 04/03/24 15:30 Currently or been in a relationship where the following occur: no concerns reported Const General: comfortable and no acute distress Nutritional Appearance: obese Neck Neck: Yes full ROM, Yes no lymphadenopathy and Yes supple Thyroid: Thyroid normal Resp Auscultation: clear to auscultation bilaterally Cardio Other: S1-S2 present regular rate and rhythm GI Other: Normal bowel sounds, soft, nontender, no mass palpated Assessment and Plan Assessment & Plan (1) Obesity (BMI 30.0-34.9): Code(s): E66.9 - Obesity, unspecified Plan: Continue on Mounjaro 2.5 mg injected once a week for another month, continue adherence to healthy eating habits and getting regular exercise when taking the medication . Patient again reminded on the possible side effects of medication, and on proper administration Medications: New tirzepatide (Mounjaro) 2.5 mg (0.5 mL) subcut QWEEK 2 mL 0RF 4 weeks tirzepatide (Mounjaro) 2.5 mg (0.5 mL) subcut QWEEK 2 mL 2RF 4 weeks Discontinued tirzepatide Discontinued Reason: Duplicate 5 mg (0.5 mL) subcut QWEEK 1 month 2.5 mL 0RF Coding Level of Care Code Est Pt Level 3 (51530) Diagnoses Obesity (BMI 30.0-34.9) E66.9
== END 2024-04-03 16:46 | disposition home or self-care (01) ==
PROVIDERS: PCP Internal Medicine; Visit Provider Internal Medicine
DX: E66.9 Obesity, unspecified (principal)
CPT/HCPCS: 99499

== ENCOUNTER 2024-10-20 11:49 | Outpatient (AMB) | payer BC, SELFPAY ==
[2024-10-20 12:51] VITALS: BP 130/82; PULSE 68; O2SAT 98; BMI 33.5
--- NOTE | 2024-10-20 12:51 | MHC.PC.OV ---
Vital Signs 10/20/24 12:51 Height 5 ft 4 in Weight 195 lb BMI 33.5 BP 130/82 Blood Pressure Location Lt brachial Position Sitting Pulse 68 Pulse Source Pulse Oximeter Pulse Oximetry (%) 98 Oxygen Delivery Method Room Air Intake Visit Reasons: Medication Review Intake Note: Pt is here today f/u weight/ and request refill on mounjaro Allergies No Known Allergies Allergy (Verified 10/20/24 13:19) Medication List - Last Reconciled 10/20/24 by Caroline Gonzalez MD cholecalciferol (vitamin D3) 50 mcg PO DAILY glucosamine-chondroitin 250-200 mg (Osteo Bi-Flex) 2 tabs PO TID multivitamin 1 tab PO DAILY omega-3 fatty acids (Fish Oil Concentrate) 1,000 mg PO DAILY tirzepatide (Mounjaro) 2.5 mg (0.5 mL) subcut QWEEK 4 weeks Tobacco use date assessed: 10/20/24 Dental Screening Dental Screen Date: 10/20/24 Did you have a dental visit in the last 12 months?: Yes Did you have a dental problem in the last 6 months where you did not have access to dental care?: No Was dental information given to patient?: Patient has dentist HPI Medication Review HPI Details 49-year-old lady with obesity, has been prescribed Mounjaro, and was able to lose weight while taking it. However has not been able to take medication consistently due to it being out of stock. She has been following healthy diet and has bee exercising regularly but is now starting to be in the weight back. Would like to go on a higher dose of Mounjaro . Was able to tolerate the medication, with no side effects reported. FORMERLY [facility], [facility] Medical History Obesity (BMI 30.0-34.9) Impaired fasting glucose History of menorrhagia Acquired deformity of toenail History of pre-eclampsia Hx gestational diabetes Family history of thyroid disease Surgical History Hx of dilation and curettage Family History Other Thyroid disorder Social History Housing: House Patient Tobacco Use Status: Never used Tobacco e-Cigarette/Vaping Use: Never Used service: No Current occupational status: employed Cognitive needs: No Hearing needs: No Vision needs: Yes (contacts) Questionnaire PHQ-9 Over the last 2 weeks, how often have you been bothered by any of the following problems? 1. Little interest or pleasure in doing things: not at all 2. Feeling down, depressed, or hopeless: not at all 3. Trouble falling or staying asleep, or sleeping too much: not at all 4. Feeling tired or having little energy: not at all 5. Poor appetite or overeating: not at all 6. Feeling bad about yourself - or that you are a failure or have let yourself or your family down: not at all 7. Trouble concentrating on things, such as reading the newspaper or watching television: not at all 8. Moving or speaking so slowly that other people could have noticed. Or the opposite - being so fidgety or restless that you have been moving around a lot more than usual: not at all 9. Thoughts that you would be better off or of hurting yourself in some way: not at all Total score: 0 Depression Screening Interpretation: Negative Depression Screening Done: Yes 59648 - PHQ-9 Billing: Yes Source: Developed by Drs. Vineet Montejo, Selena Amador, Edgar Martinez and colleagues, with an educational gualberto from [employer]. Thrive Questionnaire Date Thrive assessed: 10/20/24 I am a: Patient What is your living situation today?: I have a steady place to live Within the past 12 months, did the food you bought not last and you didn't have the money to get more?: Never true Within the past 12 months, did you worry whether your food would run out before you got money to buy more?: Never true Do you have trouble paying for medicines?: No Do you have trouble getting transportation to medical appointments?: Yes Do you have trouble paying your heating and electricity bill?: No Do you have trouble taking care of your child, family member or friend?: No Do you have trouble with day-to-day activities such as bathing, preparing meals, shopping, managing finances, etc.?: No Are you currently unemployed and looking for a job?: No Are you interested in more education?: No THRIVE Score: 1 AUDIT C Alcohol Use Questionnaire (AUDIT-C) 1. How often do you have a drink containing alcohol?: 2-4 times a month 2. How many drinks containing alcohol do you have on a typical day when you are drinking?: 1 or 2 3. How often do you have six or more drinks on one occasion?: Never Total Score: 2 ANAY-7 AMB Questionnaire ANAY-7 Date ANAY - 7 assessed: 10/20/24 Feeling nervous, anxious, or on edge: 0 = Not at all Not being able to stop or control worryin = Not at all Worrying too much about different things: 0 = Not at all Trouble relaxin = Not at all Being so restless that it is hard to sit still: 0 = Not at all Becoming easily annoyed or irritable: 0 = Not at all Feeling afraid as if something awful might happen: 0 = Not at all Total ANAY-7 score (0-4 normal; 5-9 mild; 10-14 moderate; 15-21 severe): 0 Source: Developed by Drs. Vineet Montejo, Selena Amador, Edgar Martinez and colleagues, with an educational gualberto from [employer]. ANAY-7 Assessment Billing ANAY-7 Assessment Tool: ANAY-7 Assessment 79965 Review of Systems Const All systems reviewed & are unremarkable except as noted in HPI and below Physical exam (Primary Care) Vital Signs: Last Vital Signs Pulse 68 10/20/24 12:51 BP 130/82 10/20/24 12:51 Pulse Ox 98 10/20/24 12:51 Oxygen Delivery Method Room Air 10/20/24 12:51 BMI result Body Mass Index 33.5 Tobacco/Smoking Status: Tobacco use Status Tobacco use date assessed 10/20/24 10/20/24 13:03 Patient Tobacco Use Status Never used Tobacco 10/20/24 12:55 e-Cigarette/Vaping Use Never Used 10/20/24 12:55 PHQ-9: PHQ-9 Score PHQ-9: Total score 0 10/20/24 13:27 Depression Screening Interpretation: Negative Thrive Assessment: Date of Thrive Assessment Date Thrive assessed 01/06/25 01/06/25 12:55 Const General: comfortable and no acute distress Nutritional Appearance: obese Neck Neck: Yes full ROM, Yes no lymphadenopathy and Yes supple Thyroid: Thyroid normal Resp Auscultation: clear to auscultation bilaterally Cardio Other: S1-S2 present regular rate and rhythm GI Other: Normal bowel sounds, soft, nontender, no mass palpated Coding Level of Care Code Est Pt Level 3 (10248) Diagnoses Impaired fasting glucose R73.01 Obesity (BMI 30.0-34.9) E66.9 Additional Codes PHQ-9 - 95578 - PHQ-9 Billing: Yes ([id number]) ANAY-7 Assessment Billing - ANAY-7 Assessment Tool: ANAY-7 Assessment 72308 ([id number]) Assessment & Plan Assessment & Plan (1) Impaired fasting glucose: Code(s): R73.01 - Impaired fasting glucose Category: Medical Plan: Your previous fasting blood sugars were elevated above 100 mg/dL. Impaired glucose metabolism increases the risk for developing diabetes mellitus type 2, as well as heart attack and stroke later on. Lifestyle changes that promotes weight loss, healthy eating habits, and regular exercise are important, and can prevent the progression to diabetes (2) Obesity (BMI 30.0-34.9): Code(s): E66.9 - Obesity, unspecified Category: Medical Plan: Prescription sent for Mounjaro 5 mg per injection to inject subcutaneously once a week. Reinforced importance of adhering to healthy diet and getting regular exercise fasting labs ordered to be done prior to her next appointment for physical exam in December. Orders: Orders [facility] [place]. Panel Fast 11/15/24 E66.9 - Obesity, unspecified, R73.01 - Impaired fasting glucose Lipid Panel 11/15/24 E66.9 - Obesity, unspecified, R73.01 - Impaired fasting glucose Vitamin D 25-OH Total 11/15/24 E66.9 - Obesity, unspecified, R73.01 - Impaired fasting glucose Medications: New Mounjaro (tirzepatide) 5 mg (0.5 mL) subcut QWEEK 2 mL 3RF NS Discontinued tirzepatide (Mounjaro) Discontinued Reason: Duplicate 2.5 mg (0.5 mL) subcut QWEEK 4 weeks 2 mL 2RF
== END 2024-10-20 13:46 | disposition home or self-care (01) ==
PROVIDERS: PCP Internal Medicine; Visit Provider Internal Medicine
DX: R73.01 Impaired fasting glucose (principal); E66.9 Obesity, unspecified; Z68.33 Body mass index [BMI] 33.0-33.9, adult

== ENCOUNTER → 2024-10-20 11:49 | Outpatient (BNVA) | payer BC, SELFPAY | PROVIDERS: PCP Internal Medicine; Visit Provider Internal Medicine | DX: R73.01 Impaired fasting glucose (principal); E66.9 Obesity, unspecified; Z68.33 Body mass index [BMI] 33.0-33.9, adult | CPT/HCPCS: 96127 ==

== ENCOUNTER 2024-11-15 09:43 | Outpatient (REF) | payer BC, SELFPAY ==
[2024-11-15 12:21] LABS: Alanine Aminotransferase 12 U/L (0-31); Alkaline Phosphatase 56 U/L (39-117); Anion Gap 10 (12-20); Aspartate Amino Transferase 22 U/L (5-31); Bilirubin Total 0.8 mg/dL (0.0-1.0); Blood Urea Nitrogen 14 mg/dL (9-16); Calcium 8.8 mg/dL (8.4-10.2); Carbon Dioxide 21 mmol/L (22-29); Chloride 112 mmol/L (96-108); Cholesterol 174 mg/dL (<200); Estimated Glomerular Filt Rate > 60; Glucose Fasting 108 mg/dL (60-99); HDL Cholesterol 44 mg/dL (>40); LDL Cholesterol Calculated 118 mg/dL (<100); Potassium 4.4 mmol/L (3.3-5.1); Sodium 139 mmol/L (135-145); Total Protein 6.9 g/dL (6.5-8.0); Triglycerides 61 mg/dL (<150)
[2024-11-15 12:42] LABS: Vitamin D 25-OH Total 75.9 ng/mL (>30)
== END 2024-11-15 09:44 | disposition home or self-care (01) ==
LOC: HO.HMGCLDS 09:43
PROVIDERS: PCP Internal Medicine; Visit Provider Internal Medicine
DX: E66.9 Obesity, unspecified (principal); R73.01 Impaired fasting glucose
CPT/HCPCS: 36415; 80053; 80061; 82306

== ENCOUNTER 2025-02-23 13:04 | Outpatient (AMB) | payer BC, SELFPAY ==
--- NOTE | 2025-02-23 13:07 | MHC.PC.OV ---
Vital Signs 02/23/25 13:15 Height 5 ft 4 in Weight 194 lb BMI 33.3 BP 126/80 Blood Pressure Location Rt brachial Position Sitting Pulse 65 Pulse Source Pulse Oximeter Temp 98.2 F Temp Source Oral Pulse Oximetry (%) 95 Oxygen Delivery Method Room Air Intake Visit Reasons: PE Intake Note: Pt is here today for her PE: last mammogram 09/20/23, colonoscopy 12/04/23, Allergies No Known Allergies Allergy (Verified 03/09/25 03:44) Medication List - Last Reconciled 03/09/25 by Caroline Gonzalez MD cholecalciferol (vitamin D3) 50 mcg PO DAILY glucosamine-chondroitin 250-200 mg (Osteo Bi-Flex) 2 tabs PO TID multivitamin 1 tab PO DAILY omega-3 fatty acids (Fish Oil Concentrate) 1,000 mg PO DAILY phentermine 30 mg PO DAILY Tobacco use date assessed: 02/23/25 Dental Screening Dental Screen Date: 02/23/25 Did you have a dental visit in the last 12 months?: Yes Did you have a dental problem in the last 6 months where you did not have access to dental care?: No Was dental information given to patient?: Patient has dentist HPI PE HPI Details 49-year-old lady with history of obesity, impaired fasting glucose, here today for her physical exam. She is overdue for her screening mammogram, last done in 2022 up-to-date with his screening colonoscopy, and goes to Dr.Moran her [facility] for her routine Pap smear which is currently up-to-date. She has been feeling well, with no complaints at present time except for difficulty with losing weight again. Was on Mounjaro but insurance stopped covering it and states that she has started gaining the weight back again despite adhering to healthy diet and getting regular exercise, and taking phentermine 15 mg once a day FOR[facility]LY [facility] Medical History (Updated 03/09/25 @ 03:55 by Caroline Gonzalez MD) Obesity (BMI 30.0-34.9) Impaired fasting glucose History of menorrhagia History of pre-eclampsia Hx gestational diabetes Family history of thyroid disease Surgical History Hx of dilation and curettage Family History Other Thyroid disorder Social History Housing: House Patient Tobacco Use Status: Never used Tobacco e-Cigarette/Vaping Use: Never Used service: No Current occupational status: employed Cognitive needs: No Hearing needs: No Vision needs: Yes (contacts) Questionnaire PHQ-9 Over the last 2 weeks, how often have you been bothered by any of the following problems? 1. Little interest or pleasure in doing things: not at all 2. Feeling down, depressed, or hopeless: not at all 3. Trouble falling or staying asleep, or sleeping too much: not at all 4. Feeling tired or having little energy: not at all 5. Poor appetite or overeating: not at all 6. Feeling bad about yourself - or that you are a failure or have let yourself or your family down: not at all 7. Trouble concentrating on things, such as reading the newspaper or watching television: not at all 8. Moving or speaking so slowly that other people could have noticed. Or the opposite - being so fidgety or restless that you have been moving around a lot more than usual: not at all 9. Thoughts that you would be better off or of hurting yourself in some way: not at all Total score: 0 Depression Screening Interpretation: Negative Depression Screening Done: Yes 31781 - PHQ-9 Billing: Yes Source: Developed by Drs. Vineet Montejo, Selena Amador, Edgar Martinez and colleagues, with an educational gualberto from [employer]. Thrive Questionnaire Date Thrive assessed: 10/20/24 I am a: Patient What is your living situation today?: I have a steady place to live Within the past 12 months, did the food you bought not last and you didn't have the money to get more?: Never true Within the past 12 months, did you worry whether your food would run out before you got money to buy more?: Never true Do you have trouble paying for medicines?: No Do you have trouble getting transportation to medical appointments?: Yes Do you have trouble paying your heating and electricity bill?: No Do you have trouble taking care of your child, family member or friend?: No Do you have trouble with day-to-day activities such as bathing, preparing meals, shopping, managing finances, etc.?: No Are you currently unemployed and looking for a job?: No Are you interested in more education?: No Please select the resources that you would like help with: None Currently or been in a relationship where the following occur: No concerns reported THRIVE Score: 1 AUDIT C Alcohol Use Questionnaire (AUDIT-C) 1. How often do you have a drink containing alcohol?: Never Total Score: 0 ANAY-7 AMB Questionnaire ANAY-7 Date ANAY - 7 assessed: 02/23/25 Feeling nervous, anxious, or on edge: 0 = Not at all Not being able to stop or control worryin = Not at all Worrying too much about different things: 0 = Not at all Trouble relaxin = Not at all Being so restless that it is hard to sit still: 0 = Not at all Becoming easily annoyed or irritable: 0 = Not at all Feeling afraid as if something awful might happen: 0 = Not at all Total ANAY-7 score (0-4 normal; 5-9 mild; 10-14 moderate; 15-21 severe): 0 Source: Developed by Drs. Vineet Montejo, Selena Amador, Edgar Martinez and colleagues, with an educational gualberto from [employer]. Review of Systems Const All systems reviewed & are unremarkable except as noted in HPI and below Physical exam (Primary Care) Vital Signs: Last Vital Signs Temp 98.2 F 02/23/25 13:15 Pulse 65 02/23/25 13:15 BP 126/80 02/23/25 13:15 Pulse Ox 95 02/23/25 13:15 Oxygen Delivery Method Room Air 02/23/25 13:15 BMI result Body Mass Index 33.3 Tobacco/Smoking Status: Tobacco use Status Tobacco use date assessed 02/23/25 02/23/25 13:11 Patient Tobacco Use Status Never used Tobacco 02/23/25 13:11 e-Cigarette/Vaping Use Never Used 02/23/25 13:11 PHQ-9: PHQ-9 Score PHQ-9: Total score 0 02/23/25 13:49 Depression Screening Interpretation: Negative Thrive Assessment: Date of Thrive Assessment Date Thrive assessed 10/20/24 02/23/25 13:11 Currently or been in a relationship where the following occur: No concerns reported Advance Care Planning discussion: Completed/Scanned Date of discussion: 02/23/25 Who was present: Patient Forms completed: Health Care Proxy Time spent: 16-45 minutes Actual minutes spent: 2 Const General: comfortable and no acute distress Nutritional Appearance: obese Orientation/consciousness: patient oriented x3 HENMT Head: Yes normocephalic Ears: external ears normal, TM's normal bilaterally and EAC's normal General nose exam: Normal external nose present Face and sinus: Yes face symmetric Mouth: Normal oral and palatal mucosa present and moist mucous membranes Neck Neck: Yes full ROM, Yes no lymphadenopathy and Yes supple Thyroid: Thyroid normal Chest Breast/axilla palpation: normal palpation of the breasts Resp Auscultation: clear to auscultation bilaterally Cardio Other: S1-S2 present regular rate and rhythm GI Other: Normal bowel sounds, soft, nontender, no mass palpated Other: followed by Dr Carlos Ring General: Yes no CVA tenderness and Yes deferred Back/Spine/Pelvis Back: no CVA tenderness and No back tenderness Skin General skin exam: no rashes or lesions noted Neuro General: patient oriented x3, gait normal, moves all extremities and no focal motor deficits Extrem General: Yes normal to inspection, Yes full ROM, Yes no joint enlargement, Yes no clubbing, cyanosis or edema and Yes normal gait Psych Appearance: grossly normal and well kempt Mental Status: mental status grossly normal Speech and movement: Normal speech and movement present Affect: normal affect Thought content: Normal thought content present Coding Level of Care Code New Pt Prev Care 40-64y(29424) Diagnoses Annual visit for general adult medical examination with abnormal findings Z00.01 Impaired fasting glucose R73.01 Obesity (BMI 30.0-34.9) E66.9 Advanced directives, counseling/discussion Z71.89 Additional Codes PHQ-9 - 06540 - PHQ-9 Billing: Yes ([id number]) Vital Signs *Quality* - Advance Care Planning discussion: Completed/Scanned ([id number]) Vital Signs *Quality* - Time spent: 16-45 minutes ([id number]) Assessment & Plan Assessment & Plan (1) Annual visit for general adult medical examination with abnormal findings: Code(s): Z00.01 - Encounter for general adult medical examination with abnormal findings Plan: Will check appropriate labs. Recommended dental visit every 6 months and regular eye exams, at least every 2 years. Take adequate calcium in diet and vitamin-D 3 at 2000 IU per cap once a day, in addition to weight-bearing exercises to help maintain good muscle tone and weight control. Instructed to do self-breast exam, and get yearly mammogram,. Up-to-date with her cervical cancer screening and pelvic exam, sees Dr. Ring. She is up-to-date with her screening colonoscopy due again in 2033 (2) Impaired fasting glucose: Code(s): R73.01 - Impaired fasting glucose Category: Medical Plan: Your previous fasting blood sugars were elevated above 100 mg/dL. Impaired glucose metabolism increases the risk for developing diabetes mellitus type 2, as well as heart attack and stroke later on. Lifestyle changes that promotes weight loss, healthy eating habits, and regular exercise are important, and can prevent the progression to diabetes (3) Obesity (BMI 30.0-34.9): Code(s): E66.9 - Obesity, unspecified Category: Medical Plan: Increase phentermine dose to 30 mg per tablet to take once a day 2 hours after breakfast. Discuss possible side effects of medication which may include increasing blood pressure levels, palpitations,. Reinforced importance of adhering to healthy eating habits and getting regular exercise. See her back for follow-up in April 2025 (4) Advanced directives, counseling/discussion: Code(s): Z71.89 - Other specified counseling Plan: Initiated the conversation about Advanced Directives. Advanced Directives help patients prepare for current and future decisions about their medical treatment and place of care. Discussed with patient that it is a process where a patients current condition and prognosis are reviewed, their wishes for information regarding their illness are elicited, and likely medical dilemmas are presented and options discussed. Healthcare proxy form completed today. The form can be amended as needed, reviewed yearly and make changes as needed Medications: New phentermine must administer 2 hours after breakfast 30 mg PO DAILY 30 caps 2RF E66.9 - Obesity, unspecified, R73.01 - Impaired fasting glucose Discontinued phentermine must administer 2 hours after breakfast Discontinued Reason: Doctor's Order 15 mg PO DAILY 90 caps 0RF E66.9 - Obesity, unspecified
[2025-02-23 13:15] VITALS: BP 126/80; PULSE 65; TEMP 36.8; O2SAT 95; BMI 33.3
--- OUTSIDE RECORDS SUMMARY | 2025-02-23 13:23 | XMS_ITS | Clinical Summary ---
Author Organization [facility] Address [address] [place] [address] Phone Care Team Providers Care Technical Buyer Name Role Phone Caroline Gonzalez MD Primary Care Provider Social History Tobacco Use Types Packs/Day Years Used Date Smoking Tobacco: Never Assessed Comments No Sex and Gender Information Value Date Recorded Sex Assigned at Not on file Legal Sex Female 8:54 AM EST Gender Identity Not on file Sexual Orientation Not on file Obstetrics History Para Term AB IAB SAB Ectopic Multiple Livin g Live Births 2 Last Filed Vital Signs Vital Sign Reading Time Taken Comments Blood Pressure - - Pulse - - Temperature - - Respiratory Rate - - Oxygen Saturation - - Inhaled Oxygen Concentration - - Weight 81.6 kg (180 lb) 10/18/2024 8:08 AM EST Height 157.5 cm (5' 2 ) 10/18/2024 8:08 AM EST Body Mass Index 32.92 10/18/2024 8:08 AM EST Plan of Treatment Health Maintenance Due Date Last Done Comments Hepatitis B Vaccines (1 of 3 - 19+ 3-dose series) 1992 Cervical Cancer Screening: Pap Smear 1994 Colorectal Cancer Screening: Colonoscopy 09/17/2022 Depression Screening 09/17/2022 HIV Screening 09/17/2022 Hepatitis C Screening 09/17/2022 Social Influencers of Health Screening 09/17/2022 Pneumococcal Vaccine: 50+ Years (1 of 1 - PCV) 2023 Zoster Vaccines (1 of 2) 2023 COVID-19 Vaccine ( - season) 2024 01/27/2021, 01/05/2021 Breast Cancer Screening 10/18/2026 10/18/19, 09/20/2023, 09/15/2022, Additional history exists DTaP,Tdap,and Td Vaccines (2 - Td or Tdap) 08/17/2031 08/17/2021 Influenza Vaccine Completed 07/23/2024, , 08/22/2022 HIB Vaccines Aged Out No longer eligi ble based on patient's age to complete this topic HPV Vaccines Aged Out No longer eligi ble based on patient's age to complete this topic Hepatitis A Vaccines Aged Out No long er eligible based on patient's age to complete this topic IPV Vaccines Aged Out No longer eligi ble based on patient's age to complete this topic MMR Vaccines Aged Out No longer eligi ble based on patient's age to complete this topic Meningococcal ACWY Vaccine Aged Out N o longer eligible based on patient's age to complete this topic Meningococcal B Vaccine Aged Out No l onger eligible based on patient's age to complete this topic Pneumococcal Vaccine: Pediatrics (0 to 5 Years) and At-Risk Patients (6 to 64 Years) Aged Out No longer eligible based on patient's age to complete this topic RSV Immunization Patients Under 20 months Aged Out No longer eligible based on patient's age to complete this topic Varicella Vaccines Aged Out No longer eligible based on patient's age to complete this topic Procedures Procedure Name Priority Date/Time Associated Diagnosis Comments MG MAMMO DIGITAL SCREENING W JONATHON BILAT Routine 10/18/2024 8:14 AM EST Encounter for screening mammogram for breast cancer from Last 3 Months or Most Recently Relevant to Health Maintenance Results * MG Mammo Digital Screening w Jonathon bilat (10/18/2024 8:14 AM EST) Anatomical Region Laterality Modality Breast Bilateral Mammography 10/21/2024 7:56 AM EST Impressions 10/21/2024 7:59 AM EST No mammographic evidence of malignancy. A negative mammogram in the presence of a clinically suspicious palpable abnormality does not preclude the possibility of malignancy or alter the indications for biopsy. PQRI CPT II 3341F Code 82359, 43572 PQRI 225 CPT II 7025F 1 TISSUE DENSITY: There are scattered areas of fibroglandular density. (BI-RADS category B) IMPRESSION: Benign. BI-RADS CATEGORY: 1 - NEGATIVE RECOMMENDATION: Screening bilateral mammogram is recommended in 1 year. Mammo Location: [facility], [address] [place] [address] -------- FINAL REPORT -------- Dictated By: Gil Bazzi Dictated Date: 10/21/2024 07:56 ET Assigned Physician: Gil Bazzi Reviewed and Electronically Signed By: Gil Bazzi Signed Date: 10/21/2024 07:59 ET Workstation ID: [id number] Transcribed By: Self Edit Transcribed Date: 10/21/2024 07:56 ET Narrative 10/21/2024 7:59 AM EST CLINICAL: The patient is a 49 years Female presenting for routine screening mammography. COMPARISON: Most recently 09/20/2023 and most remotely 06/01/2017. ?? TECHNIQUE: Full-field digital mammography of the breasts bilaterally consisting of tomosynthesis in MLO and CC projection is performed in the [employer] Systemse 2000-D unit. ??Computer aided detection utilizing the iCAD system was utilized. FINDINGS: The breasts are again seen to be composed of a combination of fatty and fibroglandular elements. ??There is no cluster of microcalcifications, mass, or area of architectural distortion. There is no skin thickening or nipple retraction. Procedure Note Gil Bazzi MD - 10/21/2024 CLINICAL: The patient is a 49 years Female presenting for routinescreening mammography. COMPARISON: Most recently 09/20/2023 and most remotely 06/01/2017. TECHNIQUE: Full-field digital mammography of the breasts bilaterallyconsisting of tomosynthesis in MLO and CC projection is performed in theFunnelyographSnackr 2000-D unit. Computer aided detection utilizing the iCADsystem was utilized. FINDINGS: The breasts are again seen to be composed of a combination offatty and fibroglandular elements. There is no cluster ofmicrocalcifications, mass, or area of architectural distortion. There isno skin thickening or nipple retraction. IMPRESSION: No mammographic evidence of malignancy. A negative mammogram in the presence of a clinically suspicious palpableabnormality does not preclude the possibility of malignancy or alter theindications for biopsy. PQRI CPT II 3341F Code 35749, 72488 PQRI 225 CPT II 7025F 1 TISSUE DENSITY: There are scattered areas of fibroglandular density.(BI-RADS category B) IMPRESSION: Benign. BI-RADS CATEGORY: 1 - NEGATIVE RECOMMENDATION: Screening bilateral mammogram is recommended in 1 year. Mammo Location: [facility], [address] [place] [address] -------- FINAL REPORT -------- Dictated By: Gil Bazzi Dictated Date: 10/21/2024 07:56 ET Assigned Physician: Gil Bazzi Reviewed and Electronically Signed By: Gil Bazzi Signed Date: 10/21/2024 07:59 ET Workstation ID: [id number] Transcribed By: Self Edit Transcribed Date: 10/21/2024 07:56 ET us Self Referral Sppl IMG BI PROCEDURES Final Resul t from Last 3 Months or Most Recently Relevant to Health Maintenance Insurance [facility] Care Teams Technical Buyer Relationship Specialty Start Date End Date Caroline Gonzalez MD [address] [place] [address] PCP - General Internal Medicine 08/28/24
--- OUTSIDE RECORDS SUMMARY | 2025-02-23 13:23 | XMS_ITS | Patient Health Record ---
Author Organization [facility] Address [address] [place] [address] Care Team Providers Care Compensation Associate Name Role Phone Lisa SPENCER, Caroline Gresham Primary Care Provider Un available Li Yun Unavailable [phone] Allergies No Known Allergies Reason For Referral No Information Medications Medication SIG (Take, Route, Frequency, Duration) Notes Start Date End Date Status Multivitamin Active Cholecalciferol 25 MCG (1000 UT) 1 capsule Orally Once a day for 30 day(s) vit d Active Turmeric-Claudia Acti ve [place] 3 1000 MG 1 capsule Orally Onc e a day for 30 day(s) Active Social History Tobacco Use: Social History Observation Description Date Details (start date - stop date) Never Smoker NA - NA Tobacco Use/Smoking Question Answer Notes Are you a: nonsmoker Additional Findings: Tobacco Non-User Current no n-smoker Alcohol Screen Question Answer Notes Did you have a drink contain ing alcohol in the past year? Yes How often did you have a dri nk containing alcohol in the past year? 2 to 4 times a month (2 points) Points 2 Interpretation Negative Tobacco use other than smoking: Question Answer Notes Are you an other tobacco user? No Plan Of Treatment No Information Insurance Providers Payer Name Payer Address Payer Phone Subscriber Number Group Number Insured Name Patient Relationship to Insured Coverage Start Date Coverage End Date Segundo Gama [address] [place] [address] [id number] Sinan Hamilton Spouse - patient is the spouse of the insured Medical (General) History Medical History History ICD Code family hx thyroid disease menorrhagia pre-eclampsia Gestational diabetes Chicken pox Surgical History Surgery Date(Month/Year) D & C endometrial ablation
== END 2025-02-23 13:51 | disposition home or self-care (01) ==
LOC: HO.HMCC 13:05
PROVIDERS: PCP Internal Medicine; Visit Provider Internal Medicine
DX: Z00.00 Encounter for general adult medical examination without abnormal findings (principal); R73.01 Impaired fasting glucose; E66.9 Obesity, unspecified; Z68.33 Body mass index [BMI] 33.0-33.9, adult; Z71.89 Other specified counseling

== ENCOUNTER → 2025-02-23 13:04 | Outpatient (BNVA) | payer BC, SELFPAY | PROVIDERS: PCP Internal Medicine; Visit Provider Internal Medicine | DX: Z00.01 Encounter for general adult medical examination with abnormal findings (principal); R73.01 Impaired fasting glucose; E66.9 Obesity, unspecified; Z68.33 Body mass index [BMI] 33.0-33.9, adult; Z71.89 Other specified counseling | CPT/HCPCS: 96127 ==

== ENCOUNTER 2025-07-16 13:23 | Outpatient (AMB) | payer BC, SELFPAY ==
[2025-07-16 13:33] VITALS: BP 122/82; PULSE 70; RESP 16; TEMP 36.7; O2SAT 99; BMI 31.8
--- NOTE | 2025-07-16 13:33 | A.OFFPC_ITS ---
Vital Signs 07/16/25 13:33 Height 5 ft 4 in Weight 185 lb BMI 31.8 BP 122/82 Blood Pressure Location Lt brachial Position Sitting Respiration 16 Pulse 70 Pulse Source Pulse Oximeter Temp 98.0 F Temp Source Oral Pulse Oximetry (%) 99 Oxygen Delivery Method Room Air Intake Visit Reasons: 2m f/u Intake Note: Pt is here today for her 2mo. f/u Pre School Teacher Required: No Allergies No Known Allergies Allergy (Verified 07/25/25 01:20) Medication List - Last Reconciled 07/16/25 by Caroline Gonzalez MD cholecalciferol (vitamin D3) 50 mcg PO DAILY glucosamine-chondroitin 250-200 mg (Osteo Bi-Flex) 2 tabs PO TID multivitamin 1 tab PO DAILY omega-3 fatty acids (Fish Oil Concentrate) 1,000 mg PO DAILY phentermine 37.5 mg PO DAILY Tobacco use date assessed: 07/16/25 Dental Screening Dental Screen Date: 07/16/25 Did you have a dental visit in the last 12 months?: Yes Did you have a dental problem in the last 6 months where you did not have access to dental care?: No Was dental information given to patient?: Patient has dentist HPI 2m f/u HPI Details 50-year-old lady with history of impaire d fasting glucose and obesity, here today for follow-up on her weight. She was started on phentermine approximately 5 months ago, and was losing weight with increasing dosage of phentermine, now on 37.5 mg daily. Denies any side effects from taking the medication. However she states that her weight loss has plateaued, despite taking medication and adhering to recommended diet and getting regular exercise. [facility] Medical History Obesity (BMI 30.0-34.9) Impaired fasting glucose History of menorrhagia History of pre-eclampsia Hx gestational diabetes Family history of thyroid disease Surgical History Hx of dilation and curettage Family History Other Thyroid disorder Social History Housing: House Patient Tobacco Use Status: Never used Tobacco e-Cigarette/Vaping Use: Never Used service: No Current occupational status: employed Cognitive needs: No Hearing needs: No Vision needs: Yes (contacts) Questionnaire PHQ-9 Over the last 2 weeks, how often have you been bothered by any of the following problems? 1. Little interest or pleasure in doing things: not at all 2. Feeling down, depressed, or hopeless: not at all 3. Trouble falling or staying asleep, or sleeping too much: not at all 4. Feeling tired or having little energy: not at all 5. Poor appetite or overeating: not at all 6. Feeling bad about yourself - or that you are a failure or have let yourself or your family down: not at all 7. Trouble concentrating on things, such as reading the newspaper or watching television: not at all 8. Moving or speaking so slowly that other people could have noticed. Or the opposite - being so fidgety or restless that you have been moving around a lot more than usual: not at all 9. Thoughts that you would be better off or of hurting yourself in some way: not at all Total score: 0 Depression Screening Interpretation: Negative Depression Screening Done: Yes 24604 - PHQ-9 Billing: Yes Source: Developed by Drs. Vineet Montejo, Selena Amador, Edgar Martinez and colleagues, with an educational gualberto from [employer]. Thrive Questionnaire Date Thrive assessed: 10/20/24 I am a: Patient What is your living situation today?: I have a steady place to live Within the past 12 months, did the food you bought not last and you didn't have the money to get more?: Never true Within the past 12 months, did you worry whether your food would run out before you got money to buy more?: Never true Do you have trouble paying for medicines?: No Do you have trouble getting transportation to medical appointments?: Yes Do you have trouble paying your heating and electricity bill?: No Do you have trouble taking care of your child, family member or friend?: No Do you have trouble with day-to-day activities such as bathing, preparing meals, shopping, managing finances, etc.?: No Are you currently unemployed and looking for a job?: No Are you interested in more education?: No Please select the resources that you would like help with: None Currently or been in a relationship where the following occur: No concerns reported THRIVE Score: 1 ANAY-7 AMB Questionnaire ANAY-7 Date ANAY - 7 assessed: 02/23/25 Source: Developed by Drs. Vineet Montejo, Selena Amador, Edgar Martinez and colleagues, with an educational gualberto from [employer]. Review of Systems Const All systems reviewed & are unremarkable except as noted in HPI and below Physical exam (Primary Care) Vital Signs: Last Vital Signs Temp 98.0 F 07/16/25 13:33 Pulse 70 07/16/25 13:33 Resp 16 07/16/25 13:33 BP 122/82 07/16/25 13:33 Pulse Ox 99 07/16/25 13:33 Oxygen Delivery Method Room Air 07/16/25 13:33 BMI result Body Mass Index 31.8 Tobacco/Smoking Status: Tobacco use Status Tobacco use date assessed 07/16/25 07/16/25 13:38 Patient Tobacco Use Status Never used Tobacco 07/16/25 13:38 e-Cigarette/Vaping Use Never Used 07/16/25 13:38 PHQ-9: PHQ-9 Score PHQ-9: Total score 0 07/16/25 13:56 Depression Screening Interpretation: Negative Thrive Assessment: Date of Thrive Assessment Date Thrive assessed 10/20/24 07/16/25 13:38 Currently or been in a relationship where the following occur: No concerns reported Const General: no acute distress Nutritional Appearance: obese Orientation/consciousness: patient oriented x3 [facility] Head: Yes normocephalic Ears: external ears normal General nose exam: Normal external nose present Face and sinus: Yes face symmetric Mouth: moist mucous membranes Neck Neck: Yes full ROM, Yes no lymphadenopathy and Yes supple Thyroid: Thyroid normal Resp Auscultation: clear to auscultation bilaterally Cardio Other: S1-S2 present regular rate and rhythm GI Other: Normal bowel sounds, soft, nontender, no mass palpated Back/Spine/Pelvis Back: No back tenderness Skin General skin exam: no rashes or lesions noted Neuro General: patient oriented x3, gait normal, moves all extremities and no focal motor deficits Extrem General: Yes normal to inspection, Yes full ROM, Yes no joint enlargement, Yes no clubbing, cyanosis or edema and Yes normal gait Psych Appearance: grossly normal and well kempt Mental Status: mental status grossly normal Speech and movement: Normal speech and movement present Affect: normal affect Coding Level of Care Code Est Pt Level 4 (06892) Diagnoses Obesity (BMI 30.0-34.9) E66.9 Impaired fasting glucose R73.01 Additional Codes PHQ-9 - 98966 - PHQ-9 Billing: Yes ([id number]) Assessment & Plan Assessment & Plan (1) Obesity (BMI 30.0-34.9): Code(s): E66.9 - Obesity, unspecified Category: Medical Plan: Will stop phentermine 37.5 mg daily and switched to phentermine-topiramate, to take 1 capsule 2 hours after breakfast, continue with adherence to healthy eating habits and continue doing at least 30 minutes of moderate intensity exercise daily. Discussed possible side effects of medication which may include headache, nausea, dizziness. See her back for follow-up in a month (2) Impaired fasting glucose: Code(s): R73.01 - Impaired fasting glucose Category: Medical Plan: Your previous fasting blood sugars were elevated above 100 mg/dL. Impaired glucose metabolism increases the risk for developing diabetes mellitus type 2, as well as heart attack and stroke later on. Lifestyle changes that promotes weight loss, healthy eating habits, and regular exercise are important, and can prevent the progression to diabetes Medications: New phentermine-topiramate 3.75-23 mg ER 1 cap PO DAILY 30 caps 0RF 30 days
--- OUTSIDE RECORDS SUMMARY | 2025-07-16 14:52 | XMS_ITS | Clinical Summary ---
Author Organization [facility] Address [address] [place] [address] Phone Care Team Providers Care Community Arts Centre Manager Name Role Phone Caroline Gonzalez MD Primary [...] Health Maintenance Due Date Last Done Comments Colorectal Cancer Screening: Colonoscopy 1973 Hepatitis B Vaccines (1 of 3 - 19+ 3-dose series) 1992 Cervical Cancer Screening: Pap Smear 1994 HIV Screening 09/17/2022 Hepatitis C Screening 09/17/2022 Social Influencers of Health Screening 09/17/2022 Pneumococcal Vaccine: 50+ Years (1 of 1 - PCV) 2023 Zoster Vaccines (1 of 2) 2023 Depression Screening 10/15/2024 COVID-19 Vaccine (2024- season) 2025 01/27/2021, 01/05/2021 Influenza Vaccine (#1) 2025 4, 08/20/2023, 08/22/2022 Breast Cancer Screening 10/18/2026 10/18/19 25, 09/20/2023, 09/15/2022, Additional history exists DTaP,Tdap,and Td Vaccines (2 - Td or Tdap) 08/17/2031 08/17/2021 RSV Immunization Adult Patients (1 - 1-dose 75+ series) 2048 HIB Vaccines Aged Out No longer eligi [...] for biopsy. PQRI CPT II 3341F Code 73581, 16093 PQRI 225 CPT II 7025F 1 TISSUE DENSITY: There are scattered areas of fibroglandular density. (BI-RADS category B) IMPRESSION: Benign. BI-RADS CATEGORY: 1 - NEGATIVE RECOMMENDATION: Screening bilateral mammogram is recommended in 1 year. Mammo Location: [facility], [address] [place] [id number] -------- FINAL REPORT -------- Dictated By: Gil Bazzi Dictated Date: 10/21/2024 07:56 ET Assigned Physician: Gil Bazzi Reviewed and Electronically Signed By: Gil Bazzi Signed Date: 10/21/2024 07:59 ET Workstation ID: [id number] Transcribed By: Self Edit Transcribed Date: 10/21/2024 07:56 ET Narrative 10/21/2024 7:59 AM EST CLINICAL: The patient is a 49 years Female presenting for routine screening mammography. COMPARISON: Most recently 09/20/2023 and most remotely 06/01/2017. TECHNIQUE: Full-field digital mammography of the breasts bilaterally consisting of tomosynthesis in MLO and CC projection is performed in the [employer] 2000-D unit. Computer aided detection utilizing the iCAD system was utilized. FINDINGS: The breasts are again seen to be composed of a combination of fatty and fibroglandular elements. There is no cluster of microcalcifications, mass, or [...] MLO and CC projection is performed in the[employer] 2000-D unit. Computer aided detection utilizing the [...] for biopsy. PQRI CPT II 3341F Code 22776, 28981 PQRI 225 CPT II 7025F 1 TISSUE DENSITY: There are scattered areas of fibroglandular density.(BI-RADS category B) IMPRESSION: Benign. BI-RADS CATEGORY: 1 - NEGATIVE RECOMMENDATION: Screening bilateral mammogram is recommended in 1 year. Mammo Location: [facility], [address] [place] [id number] -------- FINAL REPORT -------- Dictated By: Gil Bazzi Dictated Date: 10/21/2024 07:56 ET Assigned Physician: Gil Bazzi Reviewed and Electronically Signed By: Gil Bazzi Signed Date: 10/21/2024 07:59 ET Workstation ID: [id number] Transcribed By: Self Edit Transcribed Date: 10/21/2024 07:56 ET us Self Referral Sppl IMG BI PROCEDURES Final Resul t from Last 3 Months or Most Recently Relevant to Health Maintenance Insurance [facility] Care Teams Community Arts Centre Manager Relationship Specialty Start Date End Date Caroline Gonzalez MD [address] [place] [address] PCP - General Internal Medicine 08/28/24
--- OUTSIDE RECORDS SUMMARY | 2025-07-16 14:52 | XMS_ITS | Patient Health Record ---
Author Organization [facility] Address [address] [place] [address] Care Team Providers Care Diesel Technician Name Role Phone Lisa SPENCER, Caroline Gresham Primary Care Provider Un available Li Yun Unavailable [phone] Allergies No Known Allergies Reason For Referral No Information Medications Medication SIG (Take, Route, Frequency, Duration) Notes Start Date End Date Status Multivitamin Active Cholecalciferol 25 MCG (1000 UT) 1 capsule Orally Once a day; Duration: 30 day(s) vit d Active Turmeric-Claudia Acti ve [place] 3 1000 MG 1 capsule Orally Onc e a day; Duration: 30 day(s) Active Social History Tobacco Use: [...] Coverage Start Date Coverage End Date Segundo Priyank Dumfries [address] [place] [address] [id number] Sinan Hamilotn Spouse - patient is the spouse of the insured Medical (General) History Medical History History ICD Code family hx thyroid disease menorrhagia pre-eclampsia Gestational diabetes Chicken pox Surgical History Surgery Date(Month/Year) D & C endometrial ablation
== END 2025-07-16 14:46 | disposition home or self-care (01) ==
LOC: HO.HMCC 13:24
PROVIDERS: PCP Internal Medicine; Visit Provider Internal Medicine
DX: R73.01 Impaired fasting glucose (principal); E66.9 Obesity, unspecified; Z68.31 Body mass index [BMI] 31.0-31.9, adult

== ENCOUNTER → 2025-07-16 13:23 | Outpatient (BNVA) | payer BC, SELFPAY | PROVIDERS: PCP Internal Medicine; Visit Provider Internal Medicine | DX: R73.01 Impaired fasting glucose (principal); E66.9 Obesity, unspecified; Z79.899 Other long term (current) drug therapy; Z68.31 Body mass index [BMI] 31.0-31.9, adult | CPT/HCPCS: 96127 ==

== ENCOUNTER 2025-08-17 15:19 | Outpatient (AMB) | payer BC, SELFPAY ==
[2025-08-17 15:59] VITALS: BP 128/80; PULSE 72; RESP 16; TEMP 36.7; O2SAT 97; BMI 31.8
--- NOTE | 2025-08-17 15:59 | A.OFFPC_ITS ---
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 Allergies No Known Allergies Allergy (Verified 08/17/25 16:06) Medication List - Last Reconciled 08/17/25 by Caroline Gonzalez MD cholecalciferol (vitamin D3) 50 mcg PO DAILY glucosamine-chondroitin 250-200 mg (Osteo Bi-Flex) 2 tabs PO TID multivitamin 1 tab PO DAILY omega-3 fatty acids (Fish Oil Concentrate) 1,000 mg PO DAILY phentermine 37.5 mg PO DAILY Tobacco use date assessed: 08/17/25 Dental Screening Dental Screen Date: 08/17/25 Did you have a dental visit in the last 12 months?: Yes Did you have a dental problem in the last 6 months where you did not have access to dental care?: No Was dental information given to patient?: Patient has dentist HPI 1 month follow up HPI Details 50-year-old female presenting for a one- month follow-up for weight management. She has a history of obesity and impaired fasting glucose. She has been on phentermine since the summer and is currently on the maximum dose of 37.5 mg once daily. Despite being compliant with a healthy diet and moderate-intensity exercise four days a week, her weight loss has plateaued. The patient reports experiencing increased appetite in the evenings around 8-9 p.m. She denies any side effects from the medication. She is also menopausal, which she feels contributes to bloating and affects her weight. Her gynecological history includes a laser ablation of the uterine lining with ovaries retained, and she no longer has regular periods. The patient presents with a new complaint of right ear ache that started over the weekend and has disturbed her sleep. She denies any discharge from the ear or associated nasal symptoms. [facility] Medical History Obesity (BMI 30.0-34.9) Impaired fasting glucose History of menorrhagia History of pre-eclampsia Hx gestational diabetes Family history of thyroid disease Surgical History Hx of dilation and curettage Family History Other Thyroid disorder Social History Housing: House Patient Tobacco Use Status: Never used Tobacco e-Cigarette/Vaping Use: Never Used service: No Current occupational status: employed Cognitive needs: No Hearing needs: No Vision needs: Yes (contacts) Questionnaire PHQ-9 Over the last 2 weeks, how often have you been bothered by any of the following problems? 1. Little interest or pleasure in doing things: not at all 2. Feeling down, depressed, or hopeless: not at all 3. Trouble falling or staying asleep, or sleeping too much: not at all 4. Feeling tired or having little energy: not at all 5. Poor appetite or overeating: not at all 6. Feeling bad about yourself - or that you are a failure or have let yourself or your family down: not at all 7. Trouble concentrating on things, such as reading the newspaper or watching television: not at all 8. Moving or speaking so slowly that other people could have noticed. Or the opposite - being so fidgety or restless that you have been moving around a lot more than usual: not at all 9. Thoughts that you would be better off or of hurting yourself in some way: not at all Total score: 0 Depression Screening Interpretation: Negative Depression Screening Done: Yes Source: Developed by Drs. Vineet Montejo, Selena Amador, Edgar Martinez and colleagues, with an educational gualberto from [employer]. Thrive Questionnaire Date Thrive assessed: 10/20/24 I am a: Patient What is your living situation today?: I have a steady place to live Within the past 12 months, did the food you bought not last and you didn't have the money to get more?: Never true Within the past 12 months, did you worry whether your food would run out before you got money to buy more?: Never true Do you have trouble paying for medicines?: No Do you have trouble getting transportation to medical appointments?: Yes Do you have trouble paying your heating and electricity bill?: No Do you have trouble taking care of your child, family member or friend?: No Do you have trouble with day-to-day activities such as bathing, preparing meals, shopping, managing finances, etc.?: No Are you currently unemployed and looking for a job?: No Are you interested in more education?: No Please select the resources that you would like help with: None Currently or been in a relationship where the following occur: No concerns reported THRIVE Score: 1 AUDIT C Alcohol Use Questionnaire (AUDIT-C) 1. How often do you have a drink containing alcohol?: Never Total Score: 0 ANAY-7 AMB Questionnaire ANAY-7 Date ANAY - 7 assessed: 02/23/25 Source: Developed by Drs. Vineet Montejo, Selena Amador, Edgar Martinez and colleagues, with an educational gualberto from [employer]. Review of Systems Const All systems reviewed & are unremarkable except as noted in HPI and below Physical exam (Primary Care) Vital Signs: Last Vital Signs Temp 98.1 F 08/17/25 15:59 Pulse 72 08/17/25 15:59 Resp 16 08/17/25 15:59 BP 128/80 08/17/25 15:59 Pulse Ox 97 08/17/25 15:59 Oxygen Delivery Method Room Air 08/17/25 15:59 BMI result Body Mass Index 31.8 Tobacco/Smoking Status: Tobacco use Status Tobacco use date assessed 08/17/25 08/17/25 16:05 Patient Tobacco Use Status Never used Tobacco 08/17/25 16:05 e-Cigarette/Vaping Use Never Used 08/17/25 16:05 PHQ-9: PHQ-9 Score PHQ-9: Total score 0 08/17/25 16:09 Depression Screening Interpretation: Negative Thrive Assessment: Date of Thrive Assessment Date Thrive assessed 10/20/24 08/17/25 16:05 Currently or been in a relationship where the following occur: No concerns reported Const General: no acute distress Nutritional Appearance: obese HENMT Head: Yes normocephalic Ears: external ears normal, TM's normal bilaterally and EAC's normal General nose exam: Normal external nose present Face and sinus: Yes face symmetric Mouth: moist mucous membranes Neck Neck: Yes full ROM, Yes no lymphadenopathy and Yes supple Thyroid: Thyroid normal Resp Auscultation: clear to auscultation bilaterally Cardio Other: S1-S2 present regular rate and rhythm GI Other: Normal bowel sounds, soft, nontender, no mass palpated Extrem General: Yes normal to inspection, Yes full ROM, Yes no joint enlargement, Yes no clubbing, cyanosis or edema and Yes normal gait Coding Level of Care Code Est Pt Level 4 (81288) Diagnoses Obesity (BMI 30.0-34.9) E66.9 Otalgia, right ear H92.01 Needs flu shot Z23 Assessment & Plan Assessment & Plan (1) Obesity (BMI 30.0-34.9): Code(s): E66.9 - Obesity, unspecified Category: Medical (2) Otalgia, right ear: Code(s): H92.01 - Otalgia, right ear (3) Needs flu shot: Code(s): Z23 - Encounter for immunization Plan: Flu vaccine given today Plan 1. Obesity and Weight Management The patient has experienced a plateau in weight loss on the maximum dose of phentermine, 37.5 mg daily. This is despite adherence to diet and exercise. The plateau may be influenced by the timing of medication administration leading to evening cravings and underlying menopausal hormonal changes. The plan is to continue the current dose but adjust the timing to after lunch to improve evening appetite suppression. She was advised this medication is for short-term use and to begin tapering off by September by taking it every other day, then every third day. Weaning off the medication will help her maintain lifestyle changes independently. Insurance limitations for weight loss medications were discussed. She will continue with her balanced diet. A prescription for phentermine will be sent to [facility]. 2. Right Otalgia The patient complains of a right ear ache. Examination revealed a hair in the ear canal with a normal tympanic membrane and ear canal, and no signs of infection. The plan is to advise the patient to flush her ear with warm water at home to dislodge the foreign body. She was reassured about the benign nature of the findings. Patient was informed and verbally consented to the use of an ambient scribe for clinic note documentation during this visit. Orders: Orders Influenza [id number] Immunization 08/17/25 Z23 - Encounter for immunization Medications: New Fluarix (PF) (flu vac ts (6mos up)-PF) 0.5 mL IM ONCE 0.5 mL 0RF NS Z23 - Encounter for immunization Refilled phentermine must administer 30 minutes before or 1-2 hours after breakfast 37.5 mg PO DAILY 30 caps 1RF E66.9 - Obesity, unspecified, R73.01 - Impaired fasting glucose
--- OUTSIDE RECORDS SUMMARY | 2025-08-17 16:36 | XMS_ITS | Patient Health Record ---
Author Organization [facility] Address [address] [place] [address] Care Team Providers Care Environmental Health Inspector Name Role Phone Lisa SPENCER, Caroline Gresham Primary Care Provider Un available Li Yun Unavailable [phone] Allergies No Known Allergies Reason For Referral No Information Medications Medication SIG (Take, Route, Frequency, Duration) Notes Start Date End Date Status Multivitamin Active Cholecalciferol 25 MCG (1000 UT) 1 capsule Orally Once a day; Duration: 30 day(s) vit d Active Turmeric-Claudia Acti ve [place] 3 1000 MG 1 capsule Orally Onc [...] Start Date Coverage End Date Segundo Priyank [place] [address] [place] [address] [id number] Sinan Hamilton Spouse - patient is the spouse of the insured Medical (General) History Medical History History ICD Code family hx thyroid disease menorrhagia pre-eclampsia Gestational diabetes Chicken pox Surgical History Surgery Date(Month/Year) D & C endometrial ablation
== END 2025-08-17 16:44 | disposition home or self-care (01) ==
LOC: HO.HMCC 15:20
PROVIDERS: PCP Internal Medicine; Visit Provider Internal Medicine
DX: Z23 Encounter for immunization (principal)

== ENCOUNTER → 2025-08-17 15:19 | Outpatient (BNVA) | payer BC, SELFPAY | PROVIDERS: PCP Internal Medicine; Visit Provider Internal Medicine | DX: H92.01 Otalgia, right ear (principal); E66.9 Obesity, unspecified; Z23 Encounter for immunization; Z68.31 Body mass index [BMI] 31.0-31.9, adult; R73.01 Impaired fasting glucose; Z79.899 Other long term (current) drug therapy | CPT/HCPCS: 90471; 90656; 96127 ==